=== PATIENT | female | born 1950 | race African-American/Black ===

== ENCOUNTER 2018-10-23 16:14 | Observation (INO) ==
--- NOTE | 2018-10-23 16:36 | Emergency Department Note ---
Disposition Clinical Impression: Elevated troponin Benign paroxysmal positional vertigo Qualifiers: Laterality: unspecified laterality Qualified Code(s): H81.10 - Benign paroxysmal vertigo, unspecified ear Disposition: Admitted As Inpatient Condition: Undetermined Instructions: Benign Paroxysmal Positional Vertigo (ED) Referrals: Abdi Lemon DO [Primary Care Provider] - Forms: ED Satisfaction Letter Time of Disposition: 18:39 Dizziness HPI - General Chief Complaint: ED Dizziness Stated Complaint: dizziness Time Seen by Provider: 10/23/18 16:20 Source: patient, family Mode of arrival: ambulatory Limitations: no limitations Nursing Notes Reviewed: Yes Vital Signs Reviewed: Yes - History of Present Illness HPI Narrative: 68-year-old female with history of hypertension, hyperlipidemia, family history of CVA arrives to the emergency department with complaint of dizziness that is worse when she sits up or rotates her head a certain way. The patient states that she also had a headache and was noted to be hypertensive with systolic blood pressure the 190s 1 day ago. The patient states her symptoms are ongoing over the past 24-36 hours. She denies any chest pain, difficulty breathing or any other complaints of dizziness. Patient is resting comfortably in the room without any other acute complaints at this time. - Related Data Home Medications Medication Instructions Recorded Confirmed Actos 05/20/17 Aspirin 05/20/17 Cymbalta 05/20/17 Lantus Solostar 05/20/17 Losartan Potassium 05/20/17 Metoprolol 05/20/17 NovoLOG 05/20/17 Plaquenuil 05/20/17 Triamterene 05/20/17 05/20/17 Zostavax 05/20/17 Allergies Allergy/AdvReac Type Severity Reaction Status Date / Time iodine Allergy Rash Verified 06/06/18 10:22 Penicillins Allergy Rash Verified 06/06/18 10:22 Kyuwbcq-Rpm-Meg Reductase Allergy Rash Verified 06/06/18 10:22 Inhibitor ivp dye Allergy Rash Uncoded 05/20/17 15:27 All systems ED: reviewed and negative except as stated. Constitutional: Denies: fever, chills, weakness Eyes: Denies: vision change ENT ED: Denies: dysphagia Cardiovascular: Denies: chest pain Respiratory: Denies: dyspnea Gastrointestinal: Denies: abdominal pain Genitourinary: Denies: urgency, dysuria Musculoskeletal: Denies: back pain, neck pain, arthralgia, myalgia Integumentary: Denies: rash Neurological: Reports: headache, vertigo. Denies: weakness, numbness, paresthesias, confusion Past Medical History - Past Medical History Attestation: Yes The following information was validated with the patient. Source: patient, old records reviewed Medical history: Reports: arthritis, diabetes, fibromyalgia, hypertension Surgical history: Reports: cholecystectomy, hysterectomy Psychiatric history: Reports: no psych history - Social History Smoking Status: Never smoker Smokeless Tobacco Status: No Alcohol use: Reports: none Drug use: Reports: none Physical Exam - General Limitations: no limitations General appearance: alert, in no apparent distress - Head Head exam: atraumatic, normocephalic, normal inspection - Eye Eye exam: Present: normal appearance, PERRL, EOMI - ENT ENT exam: normal exam, normal oropharynx, mucous membranes moist - Neck Neck exam: Present: normal inspection, full ROM, trachea midline - Chest Chest inspection: Present: normal inspection, symmetric chest wall rise - Respiratory Respiratory exam: Present: normal lung sounds bilaterally - Cardiovascular Cardiovascular exam: Present: normal rhythm, bradycardia (Baseline), normal heart sounds - Abdominal Exam Abdominal exam: Present: soft, Non-Tender. Absent: tenderness, distention, guarding, rebound, rigidity - Extremities Exam Extremities exam: Present: normal inspection, full ROM. Absent: tenderness, pedal edema - Neurological Exam Neurological exam: Present: alert, oriented X3, CN II-XII intact, other (HINTs exam consistent with peripheral vertigo) - Expanded Neurological Exam Patient oriented to: Present: person, place, time Speech: Present: fluid speech Cranial nerves: EOM function (II, III, IV, ): Normal, facial sensation (V): Normal, facial palsy (VII): Normal Cerebellar function: finger to nose: Normal Motor strength - LUE: 5/5 Motor strength - RUE: 5/5 Motor strength - LLE: 5/5 Motor strength - RLE: 5/5 Sensory exam upper extremity: light touch: Normal Sensory exam lower extremity: light touch: Normal Coma Scale Eye Opening: Spontaneous Coma Scale Motor Response: Obeys Commands Coma Scale Verbal Response: Oriented Coma Scale Total: 15 - Skin Skin exam: Present: warm, dry, intact, normal color Course Vital Signs Temperature 97.5 F L 10/23/18 16:15 Pulse Rate 51 02/17/19 16:15 Respiratory Rate 16 10/23/18 16:15 Blood Pressure 167/74 10/23/18 16:15 O2 Sat by Pulse Oximetry 97 10/23/18 16:15 Temperature 97.5 F L 10/23/18 16:15 Pulse Rate 48 10/23/18 17:09 Respiratory Rate 11 10/23/18 17:09 Blood Pressure 150/49 10/23/18 17:09 O2 Sat by Pulse Oximetry 100 10/23/18 17:09 Oxygen Delivery Oxygen Delivery Room Air Dizziness - MDM Narrative Medical decision making narrative: Patient's evaluation the emergency department demonstrates findings concerning for a peripheral vertigo. Workup here in the emergency department does demonstrate elevation in troponin which appears new. Patient's renal function is mildly decreased. Given the patient's vertiginous symptoms combined with an elevated troponin, we will admit the patient to the hospital for further workup and care. The patient made aware and agrees to plan. Head CT and labwork otherwise unremarkable. No other acute process identified. No further questions or concerns noted. Accepted by Dr. Buckley. - Lab Data Lab results reviewed: Yes I reviewed the patient's lab results. Result diagrams: 10/23/18 17:28 10/23/18 17:28 Lab Results 10/23/18 10/23/18 10/23/18 Range/Units 17:23 17:28 17:28 WBC 9.0 (4.3-11.1) K/mcL RBC 4.84 (3.82-4.97) M/mcL Hgb 14.1 (11.5-15.4) g/dL Hct 44.1 (35.3-44.9) % MCV 91.1 (83.0-100.0) fL MCH 29.1 (28.0-33.3) pg MCHC 32.0 (31.6-35.5) g/dL RDW 12.6 (11.5-14.5) % Plt Count 324 (140-400) K/mcL MPV 10.5 (9.4-12.4) fL Immature Gran % 0.1 (0-4) % Seg Neutrophils % 59.3 % Lymphocytes % 24.1 % Monocytes % 10.6 % Eosinophils % 5.1 % Basophils % 0.8 % Neutrophils # 5.4 (1.6-8.9) K/mcL Lymphocytes # 2.2 (0.6-4.6) K/mcL Monocytes # 1.0 (0.0-1.3) K/mcL Eosinophils # 0.5 (0.0-0.6) K/mcL Basophils # 0.1 (0.0-0.2) K/mcL Sodium 138 (136-145) mEq/L Potassium 4.2 (3.5-5.1) mEq/L Chloride 101 (98-107) mEq/L Carbon Dioxide 30 H (23-29) mEq/L BUN 27 H (8-23) mg/dL Creatinine 1.01 (0.60-1.20) mg/dL Est GFR ( Amer) > 60 (> 60) Est GFR (Non-Af Amer) 55 L (> 60) BUN/Creatinine Ratio 27 H (6-26) Glucose 87 (70-105) mg/dL Calculated Osmolality 290 (280-300) Calcium 9.7 (8.6-10.3) mg/dL Troponin I 0.04 H* (< 0.04) ng/mL Urine Color Yellow (Yellow) Urine Clarity Clear (Clear) Urine pH 7.5 (5.0-8.0) pH Units Ur Specific [place] 1.008 L (1.010-1.025) Urine Protein Trace (Neg-Trace) mg/dL Urine Glucose (UA) Normal (Normal) mg/dL Urine Ketones Negative (Negative) mg/dL Urine Blood Negative (Negative) Urine Nitrite Negative (Negative) Urine Bilirubin Negative (Negative) Urine Urobilinogen Normal (Normal) mg/dL Ur Leukocyte Esterase Trace H (Negative) Urine Microscopic RBC 0-3 (0-3) per hpf Urine Microscopic WBC 5-15 H (0-3) per hpf Ur Squamous Epith Cells Moderate H (None-Few) per lpf Urine Bacteria Many H (None-Few) per hpf Hyaline Casts None Seen (None-Few) per lpf Ur Culture Indicated? YES A (NO) - Radiology Data Radiology results reviewed: Yes I reviewed the patient's radiology results. Chest X-Ray 10/23/18 16:32 IMPRESSION: No evidence of edema or pneumonia. Mild left mid lung linear scarring or atelectasis. D/ / 10/23/2018 16:53:00 Lang Medrano MD / Rosa Maria Miles Interpreting Provider: Lang Medrano MD Head CT 10/23/18 16:32 IMPRESSION: No acute intracranial abnormality. D/ / Michelet Hall MD / Michelet Hall MD Interpreting Provider: Michelet Hall MD - EKG Data EKG attestation: Yes I reviewed and interpreted this EKG. EKG results narrative: Heart rate 48 beats for minute. Sinus bradycardia. No ST elevation or ST depression. No signs of third-degree AV block. EKG overall similar to EKG from 06/06/2018. No acute changes noted.
[2018-10-23 17:34] LABS: Bilirubin,Urine Negative (Negative); Blood,Urine Negative (Negative); Clarity,Urine Clear (Clear); Color,Urine Yellow (Yellow); Glucose,Urine (UA) Normal (Normal); Ketones,Urine Negative (Negative); Leukocyte Esterase,Urine Trace (Negative); Nitrite,Urine Negative (Negative); PH,Urine 7.5 pH Units (5.0-8.0); Protein,Urine Trace mg/dL (Neg-Trace); Specific Gravity,Urine 1.008 (1.010-1.025); Urobilinogen,Urine Normal (Normal)
[2018-10-23 17:37] LABS: Bacteria,Urine Many per hpf (None-Few); Hyaline Casts,Urine None Seen per lpf (None-Few); RBC,Urine 0-3 per hpf (0-3); Squamous Epithelial Cell,Urine Moderate per lpf (None-Few)
[2018-10-23 17:59] LABS: Basophils # 0.1 K/mcL (0.0-0.2); Basophils % 0.8 %; Eosinophils # 0.5 K/mcL (0.0-0.6); Eosinophils % 5.1 %; Hematocrit 44.1 % (35.3-44.9); Hemoglobin 14.1 g/dL (11.5-15.4); Immature Granulocytes % 0.1 % (0-4); Lymphocytes # 2.2 K/mcL (0.6-4.6); Lymphocytes % 24.1 %; Mean Corpuscular Hemoglobin 29.1 pg (28.0-33.3); Mean Corpuscular Volume 91.1 fL (83.0-100.0); Mean Platelet Volume 10.5 fL (9.4-12.4); Monocytes % 10.6 %; Neutrophils # 5.4 K/mcL (1.6-8.9); Platelet Count 324 K/mcL (140-400); Red Blood Count 4.84 M/mcL (3.82-4.97); Red Cell Distribution Width 12.6 % (11.5-14.5); Segmented Neutrophils % 59.3 %
[2018-10-23 18:21] LABS: BUN/Creatinine Ratio 27 (6-26); Blood Urea Nitrogen 27 mg/dL (8-23); Calcium 9.7 mg/dL (8.6-10.3); Carbon Dioxide 30 mEq/L (23-29); Chloride 101 mEq/L (98-107); Glucose 87 mg/dL (70-105); Osmolality,Calculated 290 (280-300); Potassium 4.2 mEq/L (3.5-5.1); Sodium 138 mEq/L (136-145); eGFR For Non-African Americans 55 (> 60)
[2018-10-23 18:23] LABS: Troponin I 0.04 ng/mL (< 0.04)
[2018-10-23] MEDS ORDERED: Aspirin 325 MG TABLET PO ONE (18:35)
--- NOTE | 2018-10-23 18:50 | Emergency Department Note ---
Disposition Clinical Impression: Elevated troponin Benign paroxysmal positional vertigo Qualifiers: Laterality: unspecified laterality Qualified Code(s): H81.10 - Benign paroxysmal vertigo, unspecified ear Disposition: Admitted As Inpatient Condition: Undetermined Instructions: Benign Paroxysmal Positional Vertigo (ED) Referrals: Abdi Lemon DO [Primary Care Provider] - Forms: ED Satisfaction Letter General Adult HPI - General Chief complaint: ED Dizziness Stated complaint: dizziness Time Seen by Provider: 10/23/18 16:20 Source: patient, family Mode of arrival: ambulatory Limitations: no limitations - History of Present Illness Pain Scale: 2 - Related Data Home Medications Medication Instructions Recorded Confirmed Actos 05/20/17 Aspirin 05/20/17 Cymbalta 05/20/17 Lantus Solostar 05/20/17 Losartan Potassium 05/20/17 Metoprolol 05/20/17 NovoLOG 05/20/17 Plaquenuil 05/20/17 Triamterene 05/20/17 05/20/17 Zostavax 05/20/17 Allergies Allergy/AdvReac Type Severity Reaction Status Date / Time iodine Allergy Rash Verified 06/06/18 10:22 Penicillins Allergy Rash Verified 06/06/18 10:22 Juzxwbc-Dsg-Chz Reductase Allergy Rash Verified 06/06/18 10:22 Inhibitor ivp dye Allergy Rash Uncoded 05/20/17 15:27 Constitutional: Denies: fever, chills, weakness Eyes: Denies: vision change ENT ED: Denies: dysphagia Cardiovascular: Denies: chest pain Respiratory: Denies: dyspnea Gastrointestinal: Denies: abdominal pain Genitourinary: Denies: urgency, dysuria Musculoskeletal: Denies: back pain, neck pain, arthralgia, myalgia Integumentary: Denies: rash Neurological: Reports: headache, vertigo. Denies: weakness, numbness, paresthesias, confusion Past Medical History - Past Medical History Medical history: Reports: arthritis, diabetes, fibromyalgia, hypertension Surgical history: Reports: cholecystectomy, hysterectomy Psychiatric history: Reports: no psych history - Social History Smoking Status: Never smoker Smokeless Tobacco Status: No Alcohol use: Reports: none Drug use: Reports: none Physical Exam - General Limitations: no limitations General appearance: alert, in no apparent distress Course Vital Signs Temperature 97.5 F L 10/23/18 16:15 Pulse Rate 51 10/23/18 16:15 Respiratory Rate 16 10/23/18 16:15 Blood Pressure 167/74 10/23/18 16:15 O2 Sat by Pulse Oximetry 97 10/23/18 16:15 Temperature 97.5 F L 10/23/18 16:15 Pulse Rate 48 10/23/18 17:09 Respiratory Rate 11 10/23/18 17:09 Blood Pressure 150/49 10/23/18 17:09 O2 Sat by Pulse Oximetry 100 10/23/18 17:09 Oxygen Delivery Oxygen Delivery Room Air Medical Decision Making - Lab Data Result diagrams: 10/23/18 17:28 10/23/18 17:28 Lab Results 10/23/18 10/23/18 10/23/18 Range/Units 17:23 17:28 17:28 WBC 9.0 (4.3-11.1) K/mcL RBC 4.84 (3.82-4.97) M/mcL Hgb 14.1 (11.5-15.4) g/dL Hct 44.1 (35.3-44.9) % MCV 91.1 (83.0-100.0) fL MCH 29.1 (28.0-33.3) pg MCHC 32.0 (31.6-35.5) g/dL RDW 12.6 (11.5-14.5) % Plt Count 324 (140-400) K/mcL MPV 10.5 (9.4-12.4) fL Immature Gran % 0.1 (0-4) % Seg Neutrophils % 59.3 % Lymphocytes % 24.1 % Monocytes % 10.6 % Eosinophils % 5.1 % Basophils % 0.8 % Neutrophils # 5.4 (1.6-8.9) K/mcL Lymphocytes # 2.2 (0.6-4.6) K/mcL Monocytes # 1.0 (0.0-1.3) K/mcL Eosinophils # 0.5 (0.0-0.6) K/mcL Basophils # 0.1 (0.0-0.2) K/mcL Sodium 138 (136-145) mEq/L Potassium 4.2 (3.5-5.1) mEq/L Chloride 101 (98-107) mEq/L Carbon Dioxide 30 H (23-29) mEq/L BUN 27 H (8-23) mg/dL Creatinine 1.01 (0.60-1.20) mg/dL Est GFR ( Amer) > 60 (> 60) Est GFR (Non-Af Amer) 55 L (> 60) BUN/Creatinine Ratio 27 H (6-26) Glucose 87 (70-105) mg/dL Calculated Osmolality 290 (280-300) Calcium 9.7 (8.6-10.3) mg/dL Troponin I 0.04 H* (< 0.04) ng/mL Urine Color Yellow (Yellow) Urine Clarity Clear (Clear) Urine pH 7.5 (5.0-8.0) pH Units Ur Specific [place] 1.008 L (1.010-1.025) Urine Protein Trace (Neg-Trace) mg/dL Urine Glucose (UA) Normal (Normal) mg/dL Urine Ketones Negative (Negative) mg/dL Urine Blood Negative (Negative) Urine Nitrite Negative (Negative) Urine Bilirubin Negative (Negative) Urine Urobilinogen Normal (Normal) mg/dL Ur Leukocyte Esterase Trace H (Negative) Urine Microscopic RBC 0-3 (0-3) per hpf Urine Microscopic WBC 5-15 H (0-3) per hpf Ur Squamous Epith Cells Moderate H (None-Few) per lpf Urine Bacteria Many H (None-Few) per hpf Hyaline Casts None Seen (None-Few) per lpf Ur Culture Indicated? YES A (NO) Attestation Statement - Attestation Attestation: I examined this patient and my medical decision-making was reviewed with the Resident Physician. I agree with the documented findings, disposition and treatment plan as described except to the extent set forth below. 68 year old female presnts to the ED with complaints of vertigo and has a famiy history of strokes and elevated troponin. Her symtoms have subsided and she has been treated with ASA therapy. we will admit to medicine
[2018-10-23] MEDS ORDERED: *HR* Dextrose 50 % in Water (Syg) 50 ML SYRINGE IVP PRN (21:27)
[2018-10-23] MEDS ORDERED: Dextrose 4 GM Chewable Tablets PO PRN ×2 (21:27)
[2018-10-23] MEDS ORDERED: D5% in Water 1,000 ML IVC PRN (21:27)
[2018-10-23] MEDS ORDERED: Dextrose Gel 15 GM/37.5 ML TUBE PO PRN ×2 (21:27)
--- NOTE | 2018-10-23 21:38 | Internal Med History&Physical ---
<Nellie Gilliam N - Last Filed: 10/23/18 23:16> Date of Encounter: 10/23/18 Time of Encounter: 21:36 Internal Medicine - H&P: HPI Chief complaint: dizziness History of present illness: Ms. Story is a 68 year old female with past medical history of hypertension, insulin-dependent diabetes, hyperlipidemia and family history of coronary artery disease and strokes who presents to the emergency department with a chief complaint of dizziness. She states that the dizziness is worse when she stands up. She first noticed the dizziness early in the morning when she woke up. Describes it as if she is standing still and everything is spinning around her. Denies any loss of consciousness, falls, or hitting her head. But admits to a headache, worse in the occipital region. Denies any vision changes or hearing changes. Denies any changes in her speech. Denies any confusion. Denies any sensory or motor changes. She states that her blood pressure was also noted to be in the 190s systolic one day prior. In the emergency department she was found to be hypertensive with a BP of 167/74. Her lab workup revealed a slight elevation in troponin as well. EKG did reveal bradycardia with a heart rate of 48, however no AV blocks were noted. No ST-T wave changes. Patient denies any chest pain or shortness of breath. A head CT was performed and was unremarkable. Past Med Surg Social Fam HX - Past Medical History Medical history: arthritis, diabetes, fibromyalgia, hypertension Psychiatric history: no psych history - Past Surgical History Surgical History: cholecystectomy, hysterectomy Additional surgical history: carpal tunnel - Social History Smoking Status: Never smoker Smokeless Tobacco Status: No Alcohol use: none Drug use: none Internal Medicine - H&P: Meds Alendronate Sodium [Fosamax] 70 mg PO MO 10/23/18 [History] Aspirin [Lo-Dose Aspirin EC] 81 mg PO DAILY 10/23/18 [History] Duloxetine HCl [Cymbalta] 60 mg PO DAILY 10/23/18 [History] Insulin ASPART [NovoLOG] 10 unit SQ DAILY@1700 10/23/18 [History] Insulin Glargine,Hum.rec.anlog [Basaglar Kwikpen U-100] 60 unit SQ HS 10/23/18 [History] Losartan [Cozaar] 50 mg PO BID 10/23/18 [History] Metoprolol [Lopressor] 25 mg PO BID 10/23/18 [History] Pioglitazone [Actos] 45 mg PO 0800 10/23/18 [History] Triamterene/Hydrochlorothiazid [Triamterene-Hctz 75-50 mg Tab] 1 each PO DAILY 10/23/18 [History] Allergy/AdvReac Type Severity Reaction Status Date / Time iodine Allergy Rash Verified 06/06/18 10:22 Penicillins Allergy Rash Verified 06/06/18 10:22 [place]-Nho-Zuz Reductase Allergy Rash Verified 06/06/18 10:22 Inhibitor ivp dye Allergy Rash Uncoded 05/20/17 15:27 All Systems PM: A 10-system review of systems was performed and is negative for pertinent findings except as documented above in the HPI. - Constitutional Constitutional: no fatigue, no falls - EENT Eyes: no blurry vision, no change in vision Ears: no tinnitus - Cardiovascular Cardiovascular ROS IM: no chest pain - Respiratory Respiratory: no dyspnea - Gastrointestinal Gastrointestinal: no abdominal pain - Musculoskeletal Musculoskeletal ROS IM: no muscle weakness - Integumentary Integumentary IM: unusual bruising, no rash - Neurological Neurological ROS: headache(s) - Psychiatric Psychiatric: no confusion - Endocrine Endocrine IM: no cold intolerance - Hematologic/Lymphatic Hematologic/Lymphatic: easy bruising - Constitutional Vitals: Temp Pulse Resp BP Pulse Ox 97.9 F 51 16 155/81 98 10/23/18 20:34 10/23/18 20:34 10/23/18 20:34 10/23/18 20:34 10/23/18 20:34 Exam: Constitutional: resting comfortably in bed, no distress HEENT: head is atraumatic and normocephalic, EOMI, Pupils react to light bilaterally. Evidence of prior cataract surgery right eye, left eye has cataracts. no oropharyngeal lesions. External ears and nares patent. Neck: No JVD, Trachea midline Chest: symmetrical chest wall rise, no tenderness to palpation Respiratory: clear to auscultation bilaterally, no rales ronchi or wheezing Abdomen: soft nontender, no guarding or rigidity Extremities: no cyanosis, clubbing or edema Skin: clean dry and intact Psych: pleasant, cooperative, appropriate mood and affect Neurological: -General: alert and oriented X 3, no dysarthria, hemiparesis, or obvious focal n eurological deficit -Cranial nerves: EOMI, PERRL, no facial asymmetry, no facial sensory changes, to ngue protrudes midline, normal SCM, and trapezius strength -Upper extremities: strength is 5/5 throughout bilaterally, bicep reflexes are 1+ bilaterally, sensation intact, finger to nose normal -Lower extremities: strength is 5/5 throughout bilaterally, patellar reflexes are 1+ bilaterally, sensation intact, babinski negative Internal Med - H&P Results - Labs CBC & Chem 7: 10/23/18 17:28 10/23/18 17:28 Labs: Short CBC 10/23/18 Range/Units 17:28 WBC 9.0 (4.3-11.1) K/mcL Hgb 14.1 (11.5-15.4) g/dL Hct 44.1 (35.3-44.9) % Plt Count 324 (140-400) K/mcL Neutrophils # 5.4 (1.6-8.9) K/mcL BMP 10/23/18 17:28 Sodium 138 Potassium 4.2 Chloride 101 Carbon Dioxide 30 H BUN 27 H Creatinine 1.01 Glucose 87 Calcium 9.7 Cardiac Enzymes 10/23/18 Range/Units 17:28 Troponin I 0.04 H* (< 0.04) ng/mL Urine 10/23/18 Range/Units 17:23 Urine Color Yellow (Yellow) Urine Clarity Clear (Clear) Urine pH 7.5 (5.0-8.0) pH Units Ur Specific [place] 1.008 L (1.010-1.025) Urine Protein Trace (Neg-Trace) mg/dL Urine Glucose (UA) Normal (Normal) mg/dL - Impressions ITS Impressions Chest X-Ray 10/23/18 16:32 IMPRESSION: No evidence of edema or pneumonia. Mild left mid lung linear scarring or atelectasis. D/ /23/2018 16:53:00 Lang Medrano MD / Rosa Maria Miles Interpreting Provider: Lang Medrano MD Head CT 10/23/18 16:32 IMPRESSION: No acute intracranial abnormality. D/ / Michelet Hall MD / Michelet Hall MD Interpreting Provider: Michelet Hall MD - Assessment and plan (1) Dizziness Current Visit: Yes Status: Acute Assessment and plan: Differential includes CVA vs. BPV vs. hypertensive emergency vs. orthostatic hypotension -1 day history of acute onset dizziness after waking up -Associated with positional change of standing up -Described as everything spins around her -Received meclizine in the ED, but still reports feeling dizzy -No history of prior CVA or TIA -Will obtain MRI head in the morning -Echo ordered -Carotid dopplers pending -Obtaining A1c, Lipids, Vitamin B12, and TSH -Neurochecks Q4H -Cardiac monitoring -Orthostatic vital signs -PT/OT consult (2) Elevated troponin Current Visit: Yes Status: Acute Assessment and plan: -EKG in ED showed bradycardia but no ST-T wave changes -ASA 81mg daily -Cardiac monitoring -Repeat troponin -Echo in the AM (3) Hypertension Current Visit: Yes Status: Acute Assessment and plan: -Reportedly systolic blood pressure in the 190s yesterday. -Currently blood pressure is 176/75 -There is suspicions for CVA at this time, thus will allow for less stringent blood pressure control. -Will hold metoprolol due to bradycardia -Will continue home meds, except metoprolol, with a goal to maintain systolic BPs below 180 Qualifiers: Qualified Code(s): I10 - Essential (primary) hypertension (4) Insulin dependent diabetes mellitus Current Visit: Yes Status: Acute Assessment and plan: -low dose sliding scale insulin -Accuchecks Q4H -diabetic diet (5) Hyperlipidemia Current Visit: Yes Status: Acute Assessment and plan: Patient has allergy to Statins Lipid panel in the AM Qualifiers: Qualified Code(s): E78.5 - Hyperlipidemia, unspecified (6) DVT prophylaxis Current Visit: Yes Status: Acute Assessment and plan: Heparin 5000u SubQ Q12H - Time Spent With Patient Total time spent is greater than 50% in coordination of care (as documented) at patient's floor/unit and/or counseling patient: <Folra Bejosejose - Last Filed: 10/23/18 23:39> Date of Encounter: 10/23/18 Internal Medicine - H&P: HPI History of present illness: Ms. Story is a 68 year old female All Systems PM: A 10-system review of systems was performed and is negative for pertinent findings except as documented above in the HPI. - Constitutional Vitals: Temp Pulse Resp BP Pulse Ox 97.9 F 51 16 155/81 98 10/23/18 20:34 10/23/18 20:34 10/23/18 20:34 10/23/18 20:34 10/23/18 20:34 Internal Med - H&P Results - Labs CBC & Chem 7: 10/23/18 17:28 10/23/18 17:28 Labs: Short CBC 10/23/18 Range/Units 17:28 WBC 9.0 (4.3-11.1) K/mcL Hgb 14.1 (11.5-15.4) g/dL Hct 44.1 (35.3-44.9) % Plt Count 324 (140-400) K/mcL Neutrophils # 5.4 (1.6-8.9) K/mcL BMP 10/23/18 17:28 Sodium 138 Potassium 4.2 Chloride 101 Carbon Dioxide 30 H BUN 27 H Creatinine 1.01 Glucose 87 Calcium 9.7 Cardiac Enzymes 10/23/18 Range/Units 17:28 Troponin I 0.04 H* (< 0.04) ng/mL Urine 10/23/18 Range/Units 17:23 Urine Color Yellow (Yellow) Urine Clarity Clear (Clear) Urine pH 7.5 (5.0-8.0) pH Units Ur Specific [place] 1.008 L (1.010-1.025) Urine Protein Trace (Neg-Trace) mg/dL Urine Glucose (UA) Normal (Normal) mg/dL - Impressions ITS Impressions Chest X-Ray 10/23/18 16:32 IMPRESSION: No evidence of edema or pneumonia. Mild left mid lung linear scarring or atelectasis. D/ / 10/23/2018 16:53:00 Lang Medrano MD / Rosa Maria Miles Interpreting Provider: Lang Medrano MD Head CT 10/23/18 16:32 IMPRESSION: No acute intracranial abnormality. D/ / Michelet Hall MD / Michelet Hall MD Interpreting Provider: Michelet Hall MD - Time Spent With Patient Total time spent is greater than 50% in coordination of care (as documented) at patient's floor/unit and/or counseling patient: - Attending Attestation I performed a history and physical exam of the patient and discussed management with the resident. I reviewed the resident's note and agree with the documented findings and plan of care. Jenelle Story is a 68 year old woman with poorly controlled hypertension who presents with the complaint of dizziness which seems related to exertion and standing up, stating that it comes up when she moves too quickly. She also relates the episodes related to elevated BP values detected at home, reporting rebellious hypertension requiring 3 medications. Her physical exam is benign. Lab values grossly within normal limits except a troponin of 0.04. Her EKG showed a sinus bradycardia with signs of an old infarct. She denies any chest pain or shortness. Will admit for observation. Obtain orthostatic vitals due to report of dizziness with standing up. Obtain an echo to rule out valvular heart disease. Monitor on telemetry and trend cardiac enzymes. Resume home oral antihypertensives but hold beta blockers for now due to bradycardia as this could be a potential factor as well. Fall precautions. PT consult. COURT JACOBS.
[2018-10-23] MEDS: *HR* Heparin 5,000 UNIT/ML VIAL SQ SCH (23:19)
[2018-10-24] MEDS: Insulin LISPRO 300 UNITS/3 ML VIAL SQ SCH ×6 (01:28→20:53)
[2018-10-24 01:34] LABS: Mean Corpuscular HGB Conc 31.8 g/dL (31.6-35.5); Mean Corpuscular Hemoglobin 28.7 pg (28.0-33.3); Mean Corpuscular Volume 90.3 fL (83.0-100.0); Mean Platelet Volume 10.4 fL (9.4-12.4); Platelet Count 285 K/mcL (140-400); Red Blood Count 4.21 M/mcL (3.82-4.97); Red Cell Distribution Width 12.6 % (11.5-14.5)
[2018-10-24 01:35] LABS: Hemoglobin 12.1 g/dL (11.5-15.4)
[2018-10-24 01:44] LABS: INR 1.1
[2018-10-24 01:54] LABS: Albumin 3.6 g/dL (3.5-5.7); Albumin/Globulin Ratio 1.2 (1.1-2.2); Bilirubin,Total 0.5 mg/dL (0.3-1.0); Calcium 8.7 mg/dL (8.6-10.3); Chol/HDL Ratio 4.6 (0-4.9); Globulin 2.9 g/dL (2.4-3.5); Potassium 3.9 mEq/L (3.5-5.1); Total Protein 6.5 g/dL (6.4-8.9)
[2018-10-24] MEDS: *HR* Heparin 5,000 UNIT/ML VIAL SQ SCH ×2 (06:17→18:30)
[2018-10-24] MEDS ORDERED: *HR* Pioglitazone 45 MG TABLET PO SCH (08:00)
[2018-10-24] MEDS: Aspirin Enteric Coated 81 MG Tablet PO SCH (08:18)
[2018-10-24] MEDS ORDERED: Aspirin 81 MG TAB.CHEW PO SCH (09:00)
[2018-10-24 10:03] LABS: Estimated Average Glucose 263 mg/dl; Hemoglobin A1C 10.8 %
--- NOTE | 2018-10-24 15:32 | Internal Med Progress Note ---
<Luis Taylor - Last Filed: 10/24/18 16:53> Hospitalist Progress Note - Encounter Date of Encounter: 10/24/18 - Exam Vitals: Temp Pulse Resp BP Pulse Ox 98.0 F 62 16 156/75 97 10/24/18 15:57 10/24/18 15:57 10/24/18 15:57 10/24/18 15:57 10/24/18 15:57 - Assessment and Plan (1) Elevated troponin Current Visit: Yes Status: Resolved (2) Dizziness Current Visit: Yes Status: Acute (3) Insulin dependent diabetes mellitus Current Visit: Yes Status: Chronic (4) Hypertension Current Visit: Yes Status: Chronic (5) Hyperlipidemia Current Visit: Yes Status: Chronic - Time Spent with Patient Total time spent is greater than 50% in coordination of care (as documented) at patient's floor/unit and/or counseling patient: Internal Medicine: Result - Labs CBC & Chem 7: 10/24/18 01:21 10/24/18 01:21 Labs: Short CBC 10/23/18 10/24/18 Range/Units 17:28 01:21 WBC 9.0 9.1 (4.3-11.1) K/mcL Hgb 14.1 12.1 D (11.5-15.4) g/dL Hct 44.1 38.0 (35.3-44.9) % Plt Count 324 285 (140-400) K/mcL Neutrophils # 5.4 (1.6-8.9) K/mcL BMP 10/23/18 10/24/18 17:28 01:21 Sodium 138 135 L Potassium 4.2 3.9 Chloride 101 102 Carbon Dioxide 30 H 28 BUN 27 H 30 H Creatinine 1.01 1.15 Glucose 87 109 H Calcium 9.7 8.7 Cardiac Enzymes 10/23/18 10/24/18 Range/Units 17:28 01:21 Troponin I 0.04 H* 0.03 (< 0.04) ng/mL Liver Function 10/24/18 Range/Units 01:21 Total Bilirubin 0.5 (0.3-1.0) mg/dL AST 17 (13-39) Units/L ALT 11 (7-52) Units/L Alkaline Phosphatase 97 (34-104) Units/L Albumin 3.6 (3.5-5.7) g/dL Urine 10/23/18 Range/Units 17:23 Urine Color Yellow (Yellow) Urine Clarity Clear (Clear) Urine pH 7.5 (5.0-8.0) pH Units Ur Specific [place] 1.008 L (1.010-1.025) Urine Protein Trace (Neg-Trace) mg/dL Urine Glucose (UA) Normal (Normal) mg/dL - ABG Interpretation ABG results: PT/INR, D-dimer PT 12.0 Seconds (9.4-12.1) 10/24/18 01:21 - Impressions Impressions Chest X-Ray 10/23/18 16:32 IMPRESSION: No evidence of edema or pneumonia. Mild left mid lung linear scarring or atelectasis. D/ / 10/23/2018 16:53:00 Lang Medrano MD / Rosa Maria Miles Interpreting Provider: Lang Medrano MD Head CT 10/23/18 16:32 IMPRESSION: No acute intracranial abnormality. D/ / Michelet Hall MD / Michelet Hall MD Interpreting Provider: Michelet Hall MD Brain MRI 10/24/18 21:17 IMPRESSION: 1. No acute intracranial abnormality. No acute infarct. 2. Minimal global parenchymal volume loss with minimal chronic microvascular ischemic change. D/ / Tariq Greer MD / Tariq Greer MD Interpreting Provider: Tariq Greer MD Consult Discharge Plan - Plan Referrals: Abdi Lemon DO [Primary Care Provider] - - Attending Attestation I examined this patient and my medical decision-making was reviewed with the Resident Physician on 10/24/18. I agree with the documented findings, disposit ion and treatment plan as described except to the extent set forth below. Ms Story is currently in observation for dizziness. She remains moderate to high risk. Ms Story is resting in bed. She did not have MRI or any other test yet. No fever or chills. No CP or SOB. Exam Alert Comfortable Mucus membranes dry Heart not tachy or karen now No wheeze abd soft Moves all extremities No nystagmus. I/P 1. Vertigo - MRI and echo pending 2. HTN 3. DM Further diagnoses and plan as above. <Jose Esquivel - Last Filed: 10/24/18 18:35> Hospitalist Progress Note - Encounter Date of Encounter: 10/24/18 Time of Encounter: 09:45 - Subjective Interval History: Pt seen and examined at bedside. No acute events overnight. Pt states she did have a slight headache this morning, but states it resolved after she closed her eyes and took a short nap. Denies any fever, chills, chest pain, shortness of breath, abdominal pain, nausea, vomiting, dizziness, numbness, or tingling. No urinary symptoms. - Exam Vitals: Temp Pulse Resp BP Pulse Ox 97.9 F 61 14 127/72 97 10/24/18 11:13 10/24/18 11:38 10/24/18 07:15 10/24/18 11:38 10/24/18 11:13 Exam: Constitutional: obese female in no acute distress Head: normocephalic and atraumatic Eyes: PERRL, EOMI, sclera anicteric, conjunctiva pink Neck: supple, trachea midline, no carotid bruits appreciated Lungs: CTA bilaterally. non-labored breathing. no wheezes, rales, or rhonchi Heart: RRR +S1 +s2 No murmurs, clicks, or rubs appreciated GI: abdomen soft, non-tender, non-distended. normoactive bowel sounds Extremities: warm, peripheral pulses palpable and symmetrical. no edema, cyanosis, or calf tenderness. Neuro: A&Ox3. no focal deficits. no speech difficulty or abnormality. Skin: warm, dry, intact. - Assessment and Plan (1) Dizziness Current Visit: Yes Status: Acute Assessment and Plan: No history of prior CVA or TIA CT head was negative MRI head was negative for acute abnormality, did show chronic microvascular ischemic changes Echocardiogram ordered Carotid dopplers pending A1c elevated at 10.8 - follow up with PCP on discharge TSH and B12 normal Orthostatic change seen in BP from sitting to standing Await echo to evaluate for valvular abnormalities Await carotid doppler (2) Elevated troponin Current Visit: Yes Status: Resolved Assessment and Plan: Mild elevation at 0.04 on admission EKG in ED showed bradycardia but no ST-T wave changes Repeat troponin this morning 0.03 Continue ASA 81mg daily Await echo results as above (3) Insulin dependent diabetes mellitus Current Visit: Yes Status: Chronic Assessment and Plan: Hgb A1c elevated at 10.3 Continue SSI and ACHS accuchecks (4) Hypertension Current Visit: Yes Status: Chronic Assessment and Plan: Elevated on admission with SBP in the 170s Home metoprolol was d/c'ed due to bradycardia - continue to hold Controlled at 134/66 this AM Continue home Cozaar and Triamterene/HCTZ Continue to monitor (5) Hyperlipidemia Current Visit: Yes Status: Chronic Assessment and Plan: Pt is allergic to statins Lipid panel this morning revealed total cholesterol controlled at 170 Triglycerides elevated at 203 DVT Prophylaxis: SQ Heparin - Time Spent with Patient Total time spent is greater than 50% in coordination of care (as documented) at patient's floor/unit and/or counseling patient: Internal Medicine: Result - Labs CBC & Chem 7: 10/24/18 01:21 10/24/18 01:21 Labs: Short CBC 10/23/18 10/24/18 Range/Units 17:28 01:21 WBC 9.0 9.1 (4.3-11.1) K/mcL Hgb 14.1 12.1 D (11.5-15.4) g/dL Hct 44.1 38.0 (35.3-44.9) % Plt Count 324 285 (140-400) K/mcL Neutrophils # 5.4 (1.6-8.9) K/mcL BMP 10/23/18 10/24/18 17:28 01:21 Sodium 138 135 L Potassium 4.2 3.9 Chloride 101 102 Carbon Dioxide 30 H 28 BUN 27 H 30 H Creatinine 1.01 1.15 Glucose 87 109 H Calcium 9.7 8.7 Cardiac Enzymes 10/23/1818 Range/Units 17:28 01:21 Troponin I 0.04 H* 0.03 (< 0.04) ng/mL Liver Function 10/24/18 Range/Units 01:21 Total Bilirubin 0.5 (0.3-1.0) mg/dL AST 17 (13-39) Units/L ALT 11 (7-52) Units/L Alkaline Phosphatase 97 (34-104) Units/L Albumin 3.6 (3.5-5.7) g/dL Urine 10/23/18 Range/Units 17:23 Urine Color Yellow (Yellow) Urine Clarity Clear (Clear) Urine pH 7.5 (5.0-8.0) pH Units Ur Specific [place] 1.008 L (1.010-1.025) Urine Protein Trace (Neg-Trace) mg/dL Urine Glucose (UA) Normal (Normal) mg/dL - ABG Interpretation ABG results: PT/INR, D-dimer PT 12.0 Seconds (9.4-12.1) 10/24/18 01:21 - Impressions Impressions Chest X-Ray 10/23/18 16:32 IMPRESSION: No evidence of edema or pneumonia. Mild left mid lung linear scarring or atelectasis. D/ / 10/23/2018 16:53:00 Lang Medrano MD / Rosa Maria Miles Interpreting Provider: Lang Medrano MD Head CT 10/23/18 16:32 IMPRESSION: No acute intracranial abnormality. D/ / Michelet Hall MD / Michelet Hall MD Interpreting Provider: Michelet Hall MD Brain MRI 10/24/18 21:17 IMPRESSION: 1. No acute intracranial abnormality. No acute infarct. 2. Minimal global parenchymal volume loss with minimal chronic microvascular ischemic change. D/ / Tariq Greer MD / Tariq Greer MD Interpreting Provider: Tariq Greer MD <Luis Taylor A - Last Filed: 10/24/18 16:53> (4) Hypertension Qualifiers: Hypertension type: essential hypertension Qualified Code(s): I10 - Essential (primary) hypertension (5) Hyperlipidemia Qualifiers: Hyperlipidemia type: mixed hyperlipidemia Qualified Code(s): E78.2 - Mixed hyperlipidemia <Jose Esquivel A - Last Filed: 10/24/18 18:35> (4) Hypertension Qualifiers: Hypertension type: essential hypertension Qualified Code(s): I10 - Essential (primary) hypertension (5) Hyperlipidemia Qualifiers: Hyperlipidemia type: mixed hyperlipidemia Qualified Code(s): E78.2 - Mixed hyperlipidemia
[2018-10-24] MEDS ORDERED: Perflutren Lipid Microsphere 1.3 ML in 0.9 % Sodium Chloride 8.7 ML IVP ONE (17:36)
[2018-10-24] MEDS ORDERED: 0.9 % Sodium Chloride 1,000 ML IVC SCH (18:45)
[2018-10-25] MEDS: *HR* Heparin 5,000 UNIT/ML VIAL SQ SCH ×2 (05:48→16:49)
--- NOTE | 2018-10-25 06:14 | Electrocardiograph Report ---
[facility] Test Date: 2018-10-23 Pat Name: Jenelle Story Department: EXAM6 Room: 2A44 Gender: F Claims Representative: : 1950 Requested By: Abdi Cervantes Order Number: [id number] Reading MD: Tucker Callahan Measurements Intervals [place] Rate: 48 P: -9 HI: 160 QRS: 16 QRSD: 94 T: 62 QT: 472 QTc: 422 Interpretive Statements Sinus bradycardia Old Anterior infarct Electronically Signed On 10-25-2018 6:13:25 EST by Tucker Callahan
[2018-10-25 06:21] LABS: Basophils # 0.1 K/mcL (0.0-0.2); Basophils % 0.8 %; Eosinophils # 0.4 K/mcL (0.0-0.6); Eosinophils % 6.2 %; Hematocrit 34.7 % (35.3-44.9); Hemoglobin 11.3 g/dL (11.5-15.4); Immature Granulocytes % 0.1 % (0-4); Lymphocytes # 2.2 K/mcL (0.6-4.6); Mean Corpuscular HGB Conc 32.6 g/dL (31.6-35.5); Mean Platelet Volume 10.6 fL (9.4-12.4); Monocytes # 0.8 K/mcL (0.0-1.3); Monocytes % 11.3 %; Neutrophils # 3.6 K/mcL (1.6-8.9); Platelet Count 259 K/mcL (140-400); Red Cell Distribution Width 12.7 % (11.5-14.5); Segmented Neutrophils % 50.6 %
[2018-10-25 06:38] LABS: Calcium 8.6 mg/dL (8.6-10.3); Potassium 4.3 mEq/L (3.5-5.1)
[2018-10-25] MEDS: Aspirin Enteric Coated 81 MG Tablet PO SCH (08:03)
[2018-10-25] MEDS: Insulin LISPRO 300 UNITS/3 ML VIAL SQ SCH ×5 (08:03→21:45)
[2018-10-25] MEDS ORDERED: 0.9 % Sodium Chloride 1,000 ML IVC SCH (12:45)
[2018-10-25] MEDS: levoFLOXacin 250 MG TABLET PO SCH (12:50)
--- NOTE | 2018-10-25 17:02 | Internal Med Progress Note ---
<Jose Esquivel - Last Filed: 10/25/18 17:31> Hospitalist Progress Note - Encounter Date of Encounter: 10/25/18 Time of Encounter: 17:01 - Subjective Interval History: Pt seen and examined at bedside. No acute events overnight. She does admit to a couple further episodes of dizziness throughout the day. Denies any fever, chills, chest pain, shortness of breath, abdominal pain, nausea, vomiting, dizziness, numbness, or tingling. No urinary symptoms. - Exam Vitals: Temp Pulse Resp BP Pulse Ox 98.4 F 76 18 119/52 95 10/25/18 15:28 10/25/18 15:28 10/25/18 15:28 10/25/18 15:28 10/25/18 15:28 Exam: Constitutional: obese female in no acute distress Head: normocephalic and atraumatic Eyes: PERRL, EOMI, sclera anicteric, conjunctiva pink Neck: supple, trachea midline, no carotid bruits appreciated Lungs: CTA bilaterally. non-labored breathing. no wheezes, rales, or rhonchi Heart: RRR +S1 +s2 No murmurs, clicks, or rubs appreciated GI: abdomen soft, non-tender, non-distended. normoactive bowel sounds Extremities: warm, peripheral pulses palpable and symmetrical. no edema, cyanosis, or calf tenderness. Neuro: A&Ox3. no focal deficits. no speech difficulty or abnormality. Skin: warm, dry, intact. - Assessment and Plan (1) Carotid artery stenosis, symptomatic Current Visit: Yes Status: Acute Assessment and Plan: Presented with 2 days duration of dizziness No history of prior CVA or TIA CT head was negative MRI head was negative for acute abnormality, did show chronic microvascular ischemic changes Echocardiogram - LVEF 60-65%. Mild left ventricular diastolic dysfunction. RV not well visualized. Mild tricuspid regurgitation. Carotid dopplers - Right proximal ICA has a severe, 60-79% stenosis. Left mid ICA has a moderate, 40-59% stenosis. A1c elevated at 10.8 - follow up with PCP on discharge TSH and B12 normal Orthostatic change seen in BP from sitting to standing Will hydrate with IV fluids overnight with TOI with plans for CTA of carotids in AM (2) Elevated troponin Current Visit: Yes Status: Resolved Assessment and Plan: Continues to deny chest pain Mild elevation at 0.04 on admission EKG in ED showed bradycardia but no ST-T wave changes Repeat troponin this morning 0.03 Continue ASA 81mg daily Echo results as above No further treatment at this time. (3) Insulin dependent diabetes mellitus Current Visit: Yes Status: Chronic Assessment and Plan: Hgb A1c elevated at 10.3 Continue SSI and ACHS accuchecks (4) Hypertension Current Visit: Yes Status: Chronic Assessment and Plan: Elevated on admission with SBP in the 170s Home metoprolol was d/c'ed due to bradycardia - continue to hold Intermitted highs with SBP in 160s and lows with SBP 100s Repeat orthostatic vitals Continue home Cozaar and Triamterene/HCTZ Continue to monitor (5) Hyperlipidemia Current Visit: Yes Status: Chronic Assessment and Plan: Pt is allergic to statins Lipid panel revealed total cholesterol controlled at 170 Triglycerides elevated at 203 (6) UTI (urinary tract infection) Current Visit: Yes Status: Acute Assessment and Plan: UA on admission showed trace leukocyte esterase and many bacteria Urine culture preliminary results - Gram negative rods Start po Levaquin daily DVT Prophylaxis: SQ Heparin - Time Spent with Patient Total time spent is greater than 50% in coordination of care (as documented) at patient's floor/unit and/or counseling patient: Internal Medicine: Result - Labs CBC & Chem 7: 10/25/18 05:41 10/25/18 05:41 Labs: Short CBC 10/25/18 Range/Units 05:41 WBC 7.1 (4.3-11.1) K/mcL Hgb 11.3 L (11.5-15.4) g/dL Hct 34.7 L (35.3-44.9) % Plt Count 259 (140-400) K/mcL Neutrophils # 3.6 (1.6-8.9) K/mcL BMP 10/25/18 05:41 Sodium 136 Potassium 4.3 Chloride 103 Carbon Dioxide 26 BUN 41 H Creatinine 1.27 H Glucose 214 H Calcium 8.6 - ABG Interpretation ABG results: PT/INR, D-dimer PT 12.0 Seconds (9.4-12.1) 10/24/18 01:21 - Impressions Impressions Chest X-Ray 10/23/18 16:32 IMPRESSION: No evidence of edema or pneumonia. Mild left mid lung linear scarring or atelectasis. D/ / 10/23/2018 16:53:00 Lang Medrano MD / Rosa Maria Miles Interpreting Provider: Lang Medrano MD Echocardiogram 10/24/18 08:46 Impressions: LVEF 60-65%. Mild left ventricular diastolic dysfunction. Definity echo contrast was used. RV not well visualized. Mild tricuspid regurgitation. No pulmonary hypertension. Left Ventricular Wall Motion: Rest Echo Findings All wall segments showed normal motion. Findings: Study Quality * Technically challenging due to body habitus. ECG Findings * Normal sinus rhythm. Left Ventricle * Mild left ventricular diastolic dysfunction. * Definity echo contrast was used. * There is no LV thrombus. * LVEF 60-65%. * Normal LV chamber size, wall thickness and function. Right Ventricle * RV is not optimally visualized. Left Atrium * Mildly dilated left atrium. Right Atrium * Normal right atrial size. Aortic Valve * No aortic regurgitation. * Aortic valve not well visualized. * No aortic stenosis. Mitral Valve * No mitral regurgitation. * Normal mitral valve structure. * No mitral stenosis. Tricuspid Valve * Tricuspid valve not well visualized. * Mild tricuspid regurgitation. * Estimated RA pressure is 3 mmHg. * Estimated RVSP is 32 mmHg. * No pulmonary hypertension. Pulmonic Valve * Pulmonic valve is not well visualized. * No pulmonic stenosis. * No pulmonic regurgitation. Pulmonary Artery * Pulmonary artery not well visualized. Aorta * Normally sized aortic root. Pericardium * There is no pericardial effusion present. Interatrial Septum * No evidence of PFO by color Doppler. IVC * The IVC is not dilated. Consult Discharge Plan - Plan Referrals: Abdi Lemon DO [Primary Care Provider] - <Luis Taylor - Last Filed: 10/25/18 18:45> Hospitalist Progress Note - Encounter Date of Encounter: 10/25/18 - Exam Vitals: Temp Pulse Resp BP Pulse Ox 98.4 F 76 18 119/52 95 10/25/18 15:28 10/25/18 15:28 10/25/18 15:28 10/25/18 15:28 10/25/18 15:28 - Assessment and Plan (1) Elevated troponin Current Visit: Yes Status: Resolved (2) Insulin dependent diabetes mellitus Current Visit: Yes Status: Chronic (3) Hypertension Current Visit: Yes Status: Chronic (4) Hyperlipidemia Current Visit: Yes Status: Chronic (5) Carotid artery stenosis, symptomatic Current Visit: Yes Status: Acute (6) UTI (urinary tract infection) Current Visit: Yes Status: Acute (7) Orthostasis Current Visit: Yes Status: Acute - Time Spent with Patient Total time spent is greater than 50% in coordination of care (as documented) at patient's floor/unit and/or counseling patient: Internal Medicine: Result - Labs CBC & Chem 7: 10/25/18 05:41 10/25/18 05:41 Labs: Short CBC 10/25/18 Range/Units 05:41 WBC 7.1 (4.3-11.1) K/mcL Hgb 11.3 L (11.5-15.4) g/dL Hct 34.7 L (35.3-44.9) % Plt Count 259 (140-400) K/mcL Neutrophils # 3.6 (1.6-8.9) K/mcL BMP 10/25/18 05:41 Sodium 136 Potassium 4.3 Chloride 103 Carbon Dioxide 26 BUN 41 H Creatinine 1.27 H Glucose 214 H Calcium 8.6 - ABG Interpretation ABG results: PT/INR, D-dimer PT 12.0 Seconds (9.4-12.1) 10/24/18 01:21 - Impressions Impressions Chest X-Ray 10/23/18 16:32 IMPRESSION: No evidence of edema or pneumonia. Mild left mid lung linear scarring or atelectasis. D/ / 10/23/2018 16:53:00 Lang Medrano MD / Rosa Maria Miles Interpreting Provider: Lang Medrano MD Echocardiogram 10/24/18 08:46 Impressions: LVEF 60-65%. Mild left ventricular diastolic dysfunction. Definity echo contrast was used. RV not well visualized. Mild tricuspid regurgitation. No pulmonary hypertension. Left Ventricular Wall Motion: Rest Echo Findings All wall segments showed normal motion. Findings: Study Quality * Technically challenging due to body habitus. ECG Findings * Normal sinus rhythm. Left Ventricle * Mild left ventricular diastolic dysfunction. * Definity echo contrast was used. * There is no LV thrombus. * LVEF 60-65%. * Normal LV chamber size, wall thickness and function. Right Ventricle * RV is not optimally visualized. Left Atrium * Mildly dilated left atrium. Right Atrium * Normal right atrial size. Aortic Valve * No aortic regurgitation. * Aortic valve not well visualized. * No aortic stenosis. Mitral Valve * No mitral regurgitation. * Normal mitral valve structure. * No mitral stenosis. Tricuspid Valve * Tricuspid valve not well visualized. * Mild tricuspid regurgitation. * Estimated RA pressure is 3 mmHg. * Estimated RVSP is 32 mmHg. * No pulmonary hypertension. Pulmonic Valve * Pulmonic valve is not well visualized. * No pulmonic stenosis. * No pulmonic regurgitation. Pulmonary Artery * Pulmonary artery not well visualized. Aorta * Normally sized aortic root. Pericardium * There is no pericardial effusion present. Interatrial Septum * No evidence of PFO by color Doppler. IVC * The IVC is not dilated. - Attending Attestation I examined this patient and my medical decision-making was reviewed with the Resident Physician on 10/25/18. I agree with the documented findings, di sposition and treatment plan as described except to the extent set forth below. Ms Story is currently in observation for vertigo symptoms. She remains orthostatic. She remains moderate to high risk. Ms Story is still dizzy when standing. No fever or chills. No CP or SOB. No focal weakness. Exam alert Comfortable Mucus membranes dry Heart not tachy No wheeze abd soft No focal weakness Carotid duplex abnormal I/P 1. Vertigo - orthostatic positive. 2. Possible carotid obstruction - check CTA in AM after fluids 3. TOI - fluids today Further diagnoses and plan as above. <Cook,Banks A - Last Filed: 10/25/18 17:31> (1) Carotid artery stenosis, symptomatic Qualifiers: Laterality: bilateral Qualified Code(s): I65.23 - Occlusion and stenosis of bilateral carotid arteries (4) Hypertension Qualifiers: Hypertension type: essential hypertension Qualified Code(s): I10 - Essential (primary) hypertension (5) Hyperlipidemia Qualifiers: Hyperlipidemia type: mixed hyperlipidemia Qualified Code(s): E78.2 - Mixed hyperlipidemia (6) UTI (urinary tract infection) Qualifiers: Urinary tract infection type: acute cystitis Hematuria presence: without hematuria Qualified Code(s): N30.00 - Acute cystitis without hematuria <Luis Taylor A - Last Filed: 10/25/18 18:45> (3) Hypertension Qualifiers: Hypertension type: essential hypertension Qualified Code(s): I10 - Essential (primary) hypertension (4) Hyperlipidemia Qualifiers: Hyperlipidemia type: mixed hyperlipidemia Qualified Code(s): E78.2 - Mixed hyperlipidemia (5) Carotid artery stenosis, symptomatic Qualifiers: Laterality: bilateral Qualified Code(s): I65.23 - Occlusion and stenosis of bilateral carotid arteries (6) UTI (urinary tract infection) Qualifiers: Urinary tract infection type: acute cystitis Hematuria presence: without hematuria Qualified Code(s): N30.00 - Acute cystitis without hematuria
[2018-10-25] MEDS: Insulin DETEMIR 100 UNIT/ML X5UNITS SQ SCH (21:45)
[2018-10-26] MEDS: *HR* Heparin 5,000 UNIT/ML VIAL SQ SCH ×2 (05:26→16:50)
[2018-10-26 05:28] LABS: Basophils # 0.1 K/mcL (0.0-0.2); Eosinophils # 0.6 K/mcL (0.0-0.6); Eosinophils % 8.1 %; Hematocrit 37.7 % (35.3-44.9); Hemoglobin 12.3 g/dL (11.5-15.4); Immature Granulocytes % 0.1 % (0-4); Lymphocytes # 2.1 K/mcL (0.6-4.6); Mean Corpuscular HGB Conc 32.6 g/dL (31.6-35.5); Mean Corpuscular Hemoglobin 29.2 pg (28.0-33.3); Mean Corpuscular Volume 89.5 fL (83.0-100.0); Mean Platelet Volume 10.7 fL (9.4-12.4); Monocytes # 0.8 K/mcL (0.0-1.3); Monocytes % 11.4 %; Neutrophils # 3.3 K/mcL (1.6-8.9); Platelet Count 274 K/mcL (140-400); Red Blood Count 4.21 M/mcL (3.82-4.97); Red Cell Distribution Width 12.5 % (11.5-14.5); Segmented Neutrophils % 48.4 %
[2018-10-26 05:46] LABS: BUN/Creatinine Ratio 32 (6-26); Blood Urea Nitrogen 30 mg/dL (8-23); Calcium 9.5 mg/dL (8.6-10.3); Carbon Dioxide 26 mEq/L (23-29); Chloride 103 mEq/L (98-107); Glucose 111 mg/dL (70-105); Osmolality,Calculated 297 (280-300); Potassium 3.7 mEq/L (3.5-5.1); Sodium 140 mEq/L (136-145); eGFR For Non-African Americans 59 (> 60)
[2018-10-26] MEDS: Insulin LISPRO 300 UNITS/3 ML VIAL SQ SCH ×5 (07:47→21:26)
[2018-10-26] MEDS: levoFLOXacin 250 MG TABLET PO SCH (07:52)
[2018-10-26] MEDS: Aspirin Enteric Coated 81 MG Tablet PO SCH (07:52)
[2018-10-26] MEDS ORDERED: Isovue-370 500 ML BOTTLE IVP ONE (08:15)
--- NOTE | 2018-10-26 08:22 | Internal Med Progress Note ---
<Courtney Lugo - Last Filed: 10/26/18 14:10> Hospitalist Progress Note - Encounter Date of Encounter: 10/26/18 - Exam Vitals: Temp Pulse Resp BP Pulse Ox 99.0 F 74 18 133/75 96 10/26/18 07:30 10/26/18 07:30 10/26/18 07:30 10/26/18 07:30 10/26/18 07:30 - Assessment and Plan (1) Elevated troponin Current Visit: Yes Status: Resolved (2) Insulin dependent diabetes mellitus Current Visit: Yes Status: Chronic (3) Hypertension Current Visit: Yes Status: Chronic (4) Hyperlipidemia Current Visit: Yes Status: Chronic (5) Carotid artery stenosis, symptomatic Current Visit: Yes Status: Acute (6) UTI (urinary tract infection) Current Visit: Yes Status: Acute (7) Orthostasis Current Visit: Yes Status: Acute - Time Spent with Patient Total time spent is greater than 50% in coordination of care (as documented) at patient's floor/unit and/or counseling patient: Internal Medicine: Result - Labs CBC & Chem 7: 10/26/18 04:19 10/26/18 04:19 Labs: Short CBC 10/26/18 Range/Units 04:19 WBC 6.9 (4.3-11.1) K/mcL Hgb 12.3 (11.5-15.4) g/dL Hct 37.7 (35.3-44.9) % Plt Count 274 (140-400) K/mcL Neutrophils # 3.3 (1.6-8.9) K/mcL BMP 10/26/18 04:19 Sodium 140 Potassium 3.7 Chloride 103 Carbon Dioxide 26 BUN 30 H Creatinine 0.94 Glucose 111 H Calcium 9.5 - ABG Interpretation ABG results: PT/INR, D-dimer PT 12.0 Seconds (9.4-12.1) 10/24/18 01:21 - Impressions Impressions Chest X-Ray 10/23/18 16:32 IMPRESSION: No evidence of edema or pneumonia. Mild left mid lung linear scarring or atelectasis. D/ / 10/23/2018 16:53:00 Lang Medrano MD / Rosa Maria Miles Interpreting Provider: Lang Medrano MD Echocardiogram 10/24/18 08:46 Impressions: LVEF 60-65%. Mild left ventricular diastolic dysfunction. Definity echo contrast was used. RV not well visualized. Mild tricuspid regurgitation. No pulmonary hypertension. Left Ventricular Wall Motion: Rest Echo Findings All wall segments showed normal motion. Findings: Study Quality * Technically challenging due to body habitus. ECG Findings * Normal sinus rhythm. Left Ventricle * Mild left ventricular diastolic dysfunction. * Definity echo contrast was used. * There is no LV thrombus. * LVEF 60-65%. * Normal LV chamber size, wall thickness and function. Right Ventricle * RV is not optimally visualized. Left Atrium * Mildly dilated left atrium. Right Atrium * Normal right atrial size. Aortic Valve * No aortic regurgitation. * Aortic valve not well visualized. * No aortic stenosis. Mitral Valve * No mitral regurgitation. * Normal mitral valve structure. * No mitral stenosis. Tricuspid Valve * Tricuspid valve not well visualized. * Mild tricuspid regurgitation. * Estimated RA pressure is 3 mmHg. * Estimated RVSP is 32 mmHg. * No pulmonary hypertension. Pulmonic Valve * Pulmonic valve is not well visualized. * No pulmonic stenosis. * No pulmonic regurgitation. Pulmonary Artery * Pulmonary artery not well visualized. Aorta * Normally sized aortic root. Pericardium * There is no pericardial effusion present. Interatrial Septum * No evidence of PFO by color Doppler. IVC * The IVC is not dilated. Consult Discharge Plan - Plan Referrals: Abdi Lemon DO [Primary Care Provider] - - Attending Attestation I examined this patient and my medical decision-making was reviewed with the Resident Physician Dr Esquivel. I agree with the documented findings, disposition and treatment plan as described except to the extent set forth below. Ms Story is currently in observation for vertigo symptoms. She remains dizzy. Ms Story is still dizzy with any movement of the head. she feels bp elevation overnight worsened dizziness. Currently resting in bed and no dizziness when lying still. no cp, pressure, palpitations, sob or syncope gen- alert, awake,appears stated age eyes- pupils equal round , eom intact cv- reg rate and rhythm, normal s1,s2, no murmurs appreciated, no le edema lungs- ctabl, no wheezing, rhonchi or crackles, normal resp effort ra neuro- AAOx3, CN grossly intact CTA neck pending 1. Vertigo - orthostatic positive now resolved, s/p IVFs, CUS abnormal, remainder work up unremarkable 2. Possible carotid obstruction - CTA done and pending read, consult vasc surg pending result 3. TOI - resolved with IVFs 4. UTI Ecoli- levaquin previously, sensitivities are finalized and resistant to levaquin as well as a handful of other abx, given her pcn allergy changed to macrobid 5. HTN- BP elevation last night, now normotensive, cont to monitor, will require outpt fu, cont home triamterene/hctz Further diagnoses and plan as noted by resident <Jose Esquivel - Last Filed: 10/26/18 16:38> Hospitalist Progress Note - Encounter Date of Encounter: 10/26/18 Time of Encounter: 09:30 - Subjective Interval History: Pt seen and examined at bedside. States she had another episode of dizziness associated with an episode of hypertension. Denies any fever, chills, chest pain, shortness of breath, abdominal pain, nausea, vomiting, numbness, or tingling. No urinary symptoms. - Exam Vitals: Temp Pulse Resp BP Pulse Ox 99.0 F 74 18 133/75 96 10/26/18 07:30 10/26/18 07:30 10/26/18 07:30 10/26/18 07:30 10/26/18 07:30 Exam: Constitutional: obese female in no acute distress Head: normocephalic and atraumatic Eyes: PERRL, EOMI, sclera anicteric, conjunctiva pink Neck: supple, trachea midline, no carotid bruits appreciated Lungs: CTA bilaterally. non-labored breathing. no wheezes, rales, or rhonchi Heart: RRR +S1 +s2 No murmurs, clicks, or rubs appreciated GI: abdomen soft, non-tender, non-distended. normoactive bowel sounds Extremities: warm, peripheral pulses palpable and symmetrical. no edema, cyanosis, or calf tenderness. Neuro: A&Ox3. no focal deficits. no speech difficulty or abnormality. Skin: warm, dry, intact. - Assessment and Plan (1) Carotid artery stenosis, symptomatic Current Visit: Yes Status: Acute Assessment and Plan: Presented with 2 days duration of dizziness No history of prior CVA or TIA CT head was negative MRI head was negative for acute abnormality, did show chronic microvascular ischemic changes Echocardiogram - LVEF 60-65%. Mild left ventricular diastolic dysfunction. RV not well visualized. Mild tricuspid regurgitation. Carotid dopplers - Right proximal ICA has a severe, 60-79% stenosis. Left mid ICA has a moderate, 40-59% stenosis. A1c elevated at 10.8 - follow up with PCP on discharge TSH and B12 normal Orthostatic change seen in BP from sitting to standing CTA neck from this morning revealed the following findings - Approximately 70-75% focal stenosis of the proximal right ICA by NASCET criteria. - No flow limiting stenosis of the left ICA by NASCET criteria. - Moderate stenosis at the origin of both vertebral arteries. Will obtain a vascular surgery consult and await recommendations Continue HTN and DM2 management (2) Orthostasis Current Visit: Yes Status: Acute Assessment and Plan: Noted on vital signs from 10/24/18 from sitting to standing positions Again noted on vital signs from 10/25/18 from lying to sitting positions Repeated again today after IV fluids, no orthostatic change between position changes Likely related to volume status May be source of dizziness, but likely multifactorial Will continue to monitor volume status closely Encourage follow up with PCP at time of discharge (3) UTI (urinary tract infection) Current Visit: Yes Status: Acute Assessment and Plan: UA on admission showed trace leukocyte esterase and many bacteria Was receiving Levaquin, however culture grew E coli resistant to Levaquin Start Macrobid (4) Elevated troponin Current Visit: Yes Status: Resolved Assessment and Plan: Continues to deny chest pain Mild elevation at 0.04 on admission EKG in ED showed bradycardia but no ST-T wave changes Repeat troponin this morning 0.03 Continue ASA 81mg daily Echo results as above No further treatment at this time. (5) Insulin dependent diabetes mellitus Current Visit: Yes Status: Chronic Assessment and Plan: Hgb A1c elevated at 10.3 Continue SSI and ACHS accuchecks (6) Hypertension Current Visit: Yes Status: Chronic Assessment and Plan: Elevated on admission with SBP in the 170s Home metoprolol was d/c'ed due to bradycardia - continue to hold Intermitted highs with SBP in 160s and lows with SBP 100s Repeat orthostatic vitals Continue home Cozaar and Triamterene/HCTZ Continue to monitor (7) Hyperlipidemia Current Visit: Yes Status: Chronic Assessment and Plan: Pt is allergic to statins Lipid panel revealed total cholesterol controlled at 170 Triglycerides elevated at 203 DVT Prophylaxis: SQ Heparin - Time Spent with Patient Total time spent is greater than 50% in coordination of care (as documented) at patient's floor/unit and/or counseling patient: Internal Medicine: Result - Labs CBC & Chem 7: 10/26/18 04:19 10/26/18 04:19 Labs: Short CBC 10/26/18 Range/Units 04:19 WBC 6.9 (4.3-11.1) K/mcL Hgb 12.3 (11.5-15.4) g/dL Hct 37.7 (35.3-44.9) % Plt Count 274 (140-400) K/mcL Neutrophils # 3.3 (1.6-8.9) K/mcL BMP 10/26/18 04:19 Sodium 140 Potassium 3.7 Chloride 103 Carbon Dioxide 26 BUN 30 H Creatinine 0.94 Glucose 111 H Calcium 9.5 - ABG Interpretation ABG results: PT/INR, D-dimer PT 12.0 Seconds (9.4-12.1) 10/24/18 01:21 - Impressions Impressions Chest X-Ray 10/23/18 16:32 IMPRESSION: No evidence of edema or pneumonia. Mild left mid lung linear scarring or atelectasis. D/ / 10/23/2018 16:53:00 Lang Medrano MD / Rosa Maria Miles Interpreting Provider: Lang Medrano MD Echocardiogram 10/24/18 08:46 Impressions: LVEF 60-65%. Mild left ventricular diastolic dysfunction. Definity echo contrast was used. RV not well visualized. Mild tricuspid regurgitation. No pulmonary hypertension. Left Ventricular Wall Motion: Rest Echo Findings All wall segments showed normal motion. Findings: Study Quality * Technically challenging due to body habitus. ECG Findings * Normal sinus rhythm. Left Ventricle * Mild left ventricular diastolic dysfunction. * Definity echo contrast was used. * There is no LV thrombus. * LVEF 60-65%. * Normal LV chamber size, wall thickness and function. Right Ventricle * RV is not optimally visualized. Left Atrium * Mildly dilated left atrium. Right Atrium * Normal right atrial size. Aortic Valve * No aortic regurgitation. * Aortic valve not well visualized. * No aortic stenosis. Mitral Valve * No mitral regurgitation. * Normal mitral valve structure. * No mitral stenosis. Tricuspid Valve * Tricuspid valve not well visualized. * Mild tricuspid regurgitation. * Estimated RA pressure is 3 mmHg. * Estimated RVSP is 32 mmHg. * No pulmonary hypertension. Pulmonic Valve * Pulmonic valve is not well visualized. * No pulmonic stenosis. * No pulmonic regurgitation. Pulmonary Artery * Pulmonary artery not well visualized. Aorta * Normally sized aortic root. Pericardium * There is no pericardial effusion present. Interatrial Septum * No evidence of PFO by color Doppler. IVC * The IVC is not dilated. <Courtney Lugo M - Last Filed: 10/26/18 14:10> (3) Hypertension Qualifiers: Hypertension type: essential hypertension Qualified Code(s): I10 - Essential (primary) hypertension (4) Hyperlipidemia Qualifiers: Hyperlipidemia type: mixed hyperlipidemia Qualified Code(s): E78.2 - Mixed hyperlipidemia (5) Carotid artery stenosis, symptomatic Qualifiers: Laterality: bilateral Qualified Code(s): I65.23 - Occlusion and stenosis of bilateral carotid arteries (6) UTI (urinary tract infection) Qualifiers: Urinary tract infection type: acute cystitis Hematuria presence: without hematuria Qualified Code(s): N30.00 - Acute cystitis without hematuria <Jose Esquivel A - Last Filed: 10/26/18 16:38> (1) Carotid artery stenosis, symptomatic Qualifiers: Laterality: bilateral Qualified Code(s): I65.23 - Occlusion and stenosis of bilateral carotid arteries (3) UTI (urinary tract infection) Qualifiers: Urinary tract infection type: acute cystitis Hematuria presence: without hematuria Qualified Code(s): N30.00 - Acute cystitis without hematuria (6) Hypertension Qualifiers: Hypertension type: essential hypertension Qualified Code(s): I10 - Essential (primary) hypertension (7) Hyperlipidemia Qualifiers: Hyperlipidemia type: mixed hyperlipidemia Qualified Code(s): E78.2 - Mixed hyperlipidemia
--- NOTE | 2018-10-26 12:42 | Vascular/Endovasc Consult Note ---
Date of Encounter: 10/26/18 Time of Encounter: 12:10 Assessment and Plan (1) Carotid stenosis, bilateral Current Visit: Yes Status: Chronic The pathophysiology and natural history of carotid stenosis was discussed the patient and all questions were answered. The patient denies any symptoms of CVA, TIA or amaurosis fugax. She denies headaches or visual disturbances. Her carotid duplex revealed a 60-79% right internal carotid stenosis and a 40-59% l eft internal carotid stenosis. CT angiography revealed a 70% right internal carotid artery stenosis and no hemodynamically significant left internal carotid artery stenosis. Her MRI is negative for recent or prior cerebrovascular accident. Given these findings are symptoms do not appear to be related to her carotid stenosis. At this time medical therapy with aspirin and atherosclerotic risk factor reduction is recommended. The patient was advised to seek immediate medical attention for any signs or symptoms of CVA, TIA or amaurosis fugax. She may follow-up in vascular clinic in 6 months with repeat carotid duplex. (2) Insulin dependent diabetes mellitus Current Visit: Yes Status: Chronic (3) Hypertension Current Visit: Yes Status: Chronic She was counseled regarding atherosclerotic risk factor reduction. Qualifiers: Hypertension type: essential hypertension Qualified Code(s): I10 - Essential (primary) hypertension (4) Hyperlipidemia Current Visit: Yes Status: Chronic Qualifiers: Hyperlipidemia type: mixed hyperlipidemia Qualified Code(s): E78.2 - Mixed hyperlipidemia - History of Present Illness Consult date: 10/26/18 Requesting physician: Jose Esquivel Consult reason: Carotid stenosis Chief complaint: Dizziness, hypertension History of present illness: Ms. Story is a 68 year old female with a history of diabetes, hypertension and hyperlipidemia. The patient presented to [facility] with complaints of dizziness and hypertension. She reports her dizziness was most frequently associated with rising from a seated position. She denies any syncope. She was admitted for further evaluation. As part of her evaluation she underwent a carotid duplex. Duplex revealed significant carotid stenosis. Vascular surgery was counseled for further evaluation she denies any recent symptoms of CVA, TIA or amaurosis fugax. She denies headaches or visual disturbances. She denies any chest pain or shortness of breath. Past Med Surg Social Fam HX - Past Medical History Medical history: arthritis, diabetes, fibromyalgia, hypertension Psychiatric history: no psych history - Past Surgical History Surgical History: cholecystectomy, hysterectomy Additional surgical history: carpal tunnel - Social History Smoking Status: Never smoker Smokeless Tobacco Status: No Alcohol use: none Drug use: none Medications and Allergies Alendronate Sodium [Fosamax] 70 mg PO MO 10/23/18 [History] Aspirin [Lo-Dose Aspirin EC] 81 mg PO DAILY 10/23/18 [History] Duloxetine HCl [Cymbalta] 60 mg PO DAILY 10/23/18 [History] Insulin ASPART [NovoLOG] 10 unit SQ DAILY@1700 10/23/18 [History] Insulin Glargine,Hum.rec.anlog [Basaglar Kwikpen U-100] 60 unit SQ HS 10/23/18 [History] Losartan [Cozaar] 50 mg PO BID 10/23/18 [History] Metoprolol [Lopressor] 25 mg PO BID 10/23/18 [History] Pioglitazone [Actos] 45 mg PO 0800 10/23/18 [History] Triamterene/Hydrochlorothiazid [Triamterene-Hctz 75-50 mg Tab] 1 each PO DAILY 10/23/18 [History] Allergy/AdvReac Type Severity Reaction Status Date / Time iodine Allergy Rash Verified 06/06/18 10:22 Penicillins Allergy Rash Verified 06/06/18 10:22 Rubqjtj-Okg-Ant Reductase Allergy Rash Verified 06/06/18 10:22 Inhibitor ivp dye Allergy Rash Uncoded 05/20/17 15:27 All Systems Review: The remainder of the systems were reviewed and are negative - Constitutional Constitutional: no chills, no fever(s) - Cardiovascular Cardiovascular: no chest pain at rest, no dyspnea at rest - Neurological Neurological: no abnormal speech, no focal weakness, no numbness Exam Vital Signs, Last 4 Hours Temp Pulse Pulse Pulse Pulse Resp BP 10/26/18 11:29 98.3 F 73 73 79 81 19 144/74 BP BP BP Pulse Ox 10/26/18 11:29 144/74 147/77 131/73 97 General: Present: Conversant, No Apparent Distress HEENT: Present: Atraumatic, Normocephaly, Trachea midline, Pupils equal Neck: Present: Right Carotid bruit. Absent: JVD, Lymphadenopathy, Left Carotid bruit Cardiac: Present: Reg Rate and Rhythm, Normal S1 and S2 Lungs: Present: Normal Breath Sounds, No Wheeze, Rales, Rhonchi Neuro: Present: Alert and responsive, No focal deficits noted, Cranial nerves grossly intact, Motor nerves grossly intact, Sensory nerves grossly intact Abdomen: Present: Soft, Non-tender. Absent: Masses Vascular: Present: Normal capillary refill, Pulse, normal. Absent: Cyanosis, Edema Skin: Present: No rashes noted on visualized skin Musculoskeletal: Present: No Chest Wall Tenderness Consult Discharge Plan - Plan Referrals: Abdi Lemon DO [Primary Care Provider] -
[2018-10-26] MEDS: Nitrofurantoin (BID) 100 MG CAPSULE PO SCH (16:50)
[2018-10-26] MEDS: Insulin DETEMIR 100 UNIT/ML X5UNITS SQ SCH (21:26)
[2018-10-27] MEDS: *HR* Heparin 5,000 UNIT/ML VIAL SQ SCH ×2 (05:16→16:48)
[2018-10-27 05:38] LABS: Basophils # 0.1 K/mcL (0.0-0.2); Basophils % 0.7 %; Eosinophils # 0.5 K/mcL (0.0-0.6); Eosinophils % 6.6 %; Hematocrit 38.1 % (35.3-44.9); Hemoglobin 12.4 g/dL (11.5-15.4); Immature Granulocytes % 0.3 % (0-4); Lymphocytes # 2.2 K/mcL (0.6-4.6); Lymphocytes % 30.1 %; Mean Corpuscular HGB Conc 32.5 g/dL (31.6-35.5); Mean Corpuscular Hemoglobin 28.8 pg (28.0-33.3); Mean Corpuscular Volume 88.4 fL (83.0-100.0); Mean Platelet Volume 10.2 fL (9.4-12.4); Monocytes # 0.8 K/mcL (0.0-1.3); Monocytes % 11.3 %; Neutrophils # 3.6 K/mcL (1.6-8.9); Platelet Count 278 K/mcL (140-400); Red Blood Count 4.31 M/mcL (3.82-4.97); Red Cell Distribution Width 12.7 % (11.5-14.5)
[2018-10-27 05:54] LABS: BUN/Creatinine Ratio 30 (6-26); Blood Urea Nitrogen 33 mg/dL (8-23); Calcium 9.2 mg/dL (8.6-10.3); Carbon Dioxide 26 mEq/L (23-29); Chloride 103 mEq/L (98-107); Glucose 63 mg/dL (70-105); Osmolality,Calculated 289 (280-300); Potassium 4.3 mEq/L (3.5-5.1); Sodium 137 mEq/L (136-145); eGFR For Non-African Americans 50 (> 60)
[2018-10-27] MEDS: Insulin LISPRO 300 UNITS/3 ML VIAL SQ SCH ×5 (07:39→21:47)
[2018-10-27] MEDS: Nitrofurantoin (BID) 100 MG CAPSULE PO SCH ×2 (07:46→16:48)
[2018-10-27] MEDS: Aspirin Enteric Coated 81 MG Tablet PO SCH (07:46)
--- NOTE | 2018-10-27 09:34 | Internal Med Progress Note ---
<Jose Esquivel - Last Filed: 10/27/18 14:42> Hospitalist Progress Note - Encounter Date of Encounter: 10/27/18 Time of Encounter: 09:34 - Subjective Interval History: Pt seen and examined at bedside. States she had another episode of dizziness associated with an episode of hypertension overnight. Denies any fever, chills, chest pain, shortness of breath, abdominal pain, nausea, vomiting, numbness, or tingling. No urinary symptoms. - Exam Vitals: Temp Pulse Resp BP Pulse Ox 98.2 F 70 16 148/85 98 10/27/18 06:59 10/27/18 06:59 10/27/18 06:59 10/27/18 06:59 10/27/18 06:59 Exam: Constitutional: obese female in no acute distress Head: normocephalic and atraumatic Eyes: PERRL, EOMI, sclera anicteric, conjunctiva pink Neck: supple, trachea midline, no carotid bruits appreciated Lungs: CTA bilaterally. non-labored breathing. no wheezes, rales, or rhonchi Heart: RRR +S1 +s2 No murmurs, clicks, or rubs appreciated GI: abdomen soft, non-tender, non-distended. normoactive bowel sounds Extremities: warm, peripheral pulses palpable and symmetrical. no edema, cyanosis, or calf tenderness. Neuro: A&Ox3. no focal deficits. no speech difficulty or abnormality. Skin: warm, dry, intact. - Assessment and Plan (1) Dizziness Current Visit: Yes Status: Acute Assessment and Plan: No history of prior CVA or TIA CT head was negative MRI head was negative for acute abnormality, did show chronic microvascular ischemic changes Echocardiogram - LVEF 60-65%. Mild left ventricular diastolic dysfunction. RV not well visualized. Mild tricuspid regurgitation. Carotid dopplers - Right proximal ICA has a severe, 60-79% stenosis. Left mid ICA has a moderate, 40-59% stenosis. CTA neck with the following findings: - Approximately 70-75% focal stenosis of the proximal right ICA by NASCET criteria. - No flow limiting stenosis of the left ICA by NASCET criteria. - Moderate stenosis at the origin of both vertebral arteries. A1c elevated at 10.8 - follow up with PCP on discharge TSH and B12 normal Orthostatic change seen in BP on 2 separate days, however orthostatic vitals after IV fluid hydration were normal Despite educating patient on carotid stenosis and treatment guidelines, pt was very upset her stenosis is not severe enough for intervention. Discussed her risk factors at length including her HLD with her statin allergy. Continues to refuse statin. Recommended close follow up after discharge for her DM2 and HTN m anagement. Also discussed benefits of weight loss. Neurology to consult as pt refuses to leave until she knows the exact cause of her dizziness stating "If something happens at home it's your fault", despite discussion of resolved orthostasis, treatment for UTI, and vascular surgery recommendations. Appreciate neurology consult and await recs. (2) Insulin dependent diabetes mellitus Current Visit: Yes Status: Chronic Assessment and Plan: Hgb A1c elevated at 10.3 Continue SSI and ACHS accuchecks (3) Hypertension Current Visit: Yes Status: Chronic Assessment and Plan: Elevated on admission with SBP in the 170s Home metoprolol was d/c'ed due to bradycardia - will restart at half home dose, 12.5mg BID Controlled at 130/54 and 148/85 this morning Continue home Cozaar and Triamterene/HCTZ Continue to monitor (4) Hyperlipidemia Current Visit: Yes Status: Chronic Assessment and Plan: Pt is allergic to statins Lipid panel revealed total cholesterol controlled at 170 Triglycerides elevated at 203 Continues to refuse statin despite ASCVD risk recommending high intensity statin (5) Carotid artery stenosis, symptomatic Current Visit: Yes Status: Acute Assessment and Plan: Presented with 2 days duration of dizziness No history of prior CVA or TIA CT head was negative MRI head was negative for acute abnormality, did show chronic microvascular ischemic changes Echocardiogram - LVEF 60-65%. Mild left ventricular diastolic dysfunction. RV not well visualized. Mild tricuspid regurgitation. Carotid dopplers - Right proximal ICA has a severe, 60-79% stenosis. Left mid ICA has a moderate, 40-59% stenosis. A1c elevated at 10.8 - follow up with PCP on discharge TSH and B12 normal Orthostatic change seen in BP from sitting to standing CTA neck from this morning revealed the following findings - Approximately 70-75% focal stenosis of the proximal right ICA by NASCET criteria. - No flow limiting stenosis of the left ICA by NASCET criteria. - Moderate stenosis at the origin of both vertebral arteries. Vascular surgery consulted They recommended medical management of co-morbid conditions including HTN, HLD, and DM2. Follow up as outpatient 6 weeks after discharge with repeat carotid duplex. (6) UTI (urinary tract infection) Current Visit: Yes Status: Acute Assessment and Plan: UA on admission showed trace leukocyte esterase and many bacteria Was receiving Levaquin, however culture grew E coli resistant to Levaquin Continue Macrobid Day 2 (7) Orthostasis Current Visit: Yes Status: Resolved Assessment and Plan: Noted on vital signs from 10/24/18 from sitting to standing positions Again noted on vital signs from 10/25/18 from lying to sitting positions Repeated again on 10/26/18 after IV fluids, no orthostatic change between position changes Orthostasis likely related to volume status Educated on the importance of taking time to move between positions such as from sitting to standing Will continue to monitor volume status closely Encourage follow up with PCP at time of discharge (8) Elevated troponin Current Visit: Yes Status: Resolved Assessment and Plan: Continues to deny chest pain Mild elevation at 0.04 on admission EKG in ED showed bradycardia but no ST-T wave changes Repeat troponin this morning 0.03 Continue ASA 81mg daily Echo results as above No further treatment at this time. DVT Prophylaxis: SQ Heparin - Time Spent with Patient Total time spent is greater than 50% in coordination of care (as documented) at patient's floor/unit and/or counseling patient: Internal Medicine: Result - Labs CBC & Chem 7: 10/27/18 05:18 10/27/18 05:18 Labs: Short CBC 10/27/18 Range/Units 05:18 WBC 7.1 (4.3-11.1) K/mcL Hgb 12.4 (11.5-15.4) g/dL Hct 38.1 (35.3-44.9) % Plt Count 278 (140-400) K/mcL Neutrophils # 3.6 (1.6-8.9) K/mcL BMP 10/27/18 05:18 Sodium 137 Potassium 4.3 Chloride 103 Carbon Dioxide 26 BUN 33 H Creatinine 1.09 Glucose 63 L Calcium 9.2 - ABG Interpretation ABG results: PT/INR, D-dimer PT 12.0 Seconds (9.4-12.1) 10/24/18 01:21 - Impressions Impressions Neck CTA 10/26/18 09:45 IMPRESSION: 1. Approximately 70-75% focal stenosis of the proximal right ICA by NASCET criteria. 2. No flow limiting stenosis of the left ICA by NASCET criteria. 3. Moderate stenosis at the origin of both vertebral arteries. D/ / Tariq Greer MD / Tariq Greer MD Interpreting Provider: Tariq Greer MD Consult Discharge Plan - Plan Referrals: Abdi Lemon DO [Primary Care Provider] - <Courtney Lugo - Last Filed: 10/27/18 15:58> Hospitalist Progress Note - Encounter Date of Encounter: 10/27/18 - Exam Vitals: Temp Pulse Resp BP Pulse Ox 98.1 F 70 16 135/73 95 10/27/18 11:37 10/27/18 11:37 10/27/18 11:37 10/27/18 11:37 10/27/18 11:37 - Assessment and Plan (1) Elevated troponin Current Visit: Yes Status: Resolved (2) Insulin dependent diabetes mellitus Current Visit: Yes Status: Chronic (3) Hypertension Current Visit: Yes Status: Chronic (4) Hyperlipidemia Current Visit: Yes Status: Chronic (5) Carotid artery stenosis, symptomatic Current Visit: Yes Status: Acute (6) UTI (urinary tract infection) Current Visit: Yes Status: Acute (7) Orthostasis Current Visit: Yes Status: Resolved - Time Spent with Patient Total time spent is greater than 50% in coordination of care (as documented) at patient's floor/unit and/or counseling patient: Internal Medicine: Result - Labs CBC & Chem 7: 10/27/18 05:18 10/27/18 05:18 Labs: Short CBC 10/27/18 Range/Units 05:18 WBC 7.1 (4.3-11.1) K/mcL Hgb 12.4 (11.5-15.4) g/dL Hct 38.1 (35.3-44.9) % Plt Count 278 (140-400) K/mcL Neutrophils # 3.6 (1.6-8.9) K/mcL BMP 10/27/18 05:18 Sodium 137 Potassium 4.3 Chloride 103 Carbon Dioxide 26 BUN 33 H Creatinine 1.09 Glucose 63 L Calcium 9.2 - ABG Interpretation ABG results: PT/INR, D-dimer PT 12.0 Seconds (9.4-12.1) 10/24/18 01:21 - Attending Attestation I examined this patient and my medical decision-making was reviewed with the Resident Physician Dr Esquivel. I agree with the documented findings, disposition and treatment plan as described except to the extent set forth below. Ms Story is currently in observation for vertigo symptoms. Awake, Dr Esquivel at bedside. Pt upset that her ICA stenosis is not severe enough to have intervention and notes "it'll be this places fault when i go home and stroke out". She has already had discussion with vasc surg, but I reiterated to her treatment guidelines and recommendation for appropriate time of intervention which vasc surg does not deem to be at this time for all the reasons they noted to her and CT finding of degree of stenosis and I agree. We discussed at length her various risk factors for heart attack and stroke and modifications she must make as outptatinet to reduce risk of heart attack and stroke. She refuses statin bc it causes her rash. She understands the benefit and risk reduction of a statin. Also discussed diabetes management, BP control, diet and exercise and encouraged weight loss as well as close fu with outpt providers and vasc surg for surveillance of ICA stenosis. She is reporting her Bp is too high and was 180s/70s, which it was on 10/25 but has been improved over last two days. She states she will "stroke out and drop ". She is upset previous provider stopped metoprolol bc her bp is best controlled on combo of her home 3 drug regimen (though she is also noting bps w ere running high when she sporadically checks them 2-3 x daily at home). Discussed low heart rate as reason med was previously held. She wants it reintroduced for improved bp control as opposed to adjusting doses of other meds. She was educated on risks of bradycardia not limited to dizziness, syncope and falls. She states her bp control is a long standing issue and her doctors have instructed her to work on her anger at home, as bps are good in the office. She is agreeable to lower than home dose metoprolol today and Bp and HR monitoring. She notes dizziness is improved, but again, is stating she needs to know exact cause of her dizziness (despite being told she was orthostatic and no longer is, and she had UTI and that was surg does not feel it's from ICA stenosis) bc "if something happens at home it's your fault" She is agreeable to additional input by neurology today. goal is dc to home in am pendign bp/hr and neuro recs and she agrees. gen- alert, awake,appears stated age eyes- pupils equal round , eom intact cv- reg rate and rhythm, normal s1,s2, no murmurs appreciated lungs- ctabl, no wheezing, rhonchi or crackles, normal resp effort ra neuro- AAOx3, CN grossly intact 1. Dizziness, improved with IVFs and UTI treatment - neuro eval, she is independent in ambulation and ADLs such as bathing/dressing inpt and does not have any pt/ot needs and has not demonstrated being a fall risk 2. ICA stenosis - CTA 70% stenosis, vasc surg rec for fu with Dr Macdonald and repeat CUS in 6 (resident note inaccurately says 6 weeks) , risk reduction, pt refuses statin as causes rash, cont asa 3. UTI Ecoli- macrobid 4. HTN- cont to monitor, will require outpt fu, cont home triamterene/hctz, cozaar and reintroduce metoprolol at lower than home dose and monitor bp/hr today Further diagnoses and plan as noted by resident <Jose Esquivel - Last Filed: 10/27/18 14:42> (3) Hypertension Qualifiers: Hypertension type: essential hypertension Qualified Code(s): I10 - Essential (primary) hypertension (4) Hyperlipidemia Qualifiers: Hyperlipidemia type: mixed hyperlipidemia Qualified Code(s): E78.2 - Mixed hyperlipidemia (5) Carotid artery stenosis, symptomatic Qualifiers: Laterality: bilateral Qualified Code(s): I65.23 - Occlusion and stenosis of bilateral carotid arteries (6) UTI (urinary tract infection) Qualifiers: Urinary tract infection type: acute cystitis Hematuria presence: without hematuria Qualified Code(s): N30.00 - Acute cystitis without hematuria <Courtney Lugo - Last Filed: 10/27/18 15:58> (3) Hypertension Qualifiers: Hypertension type: essential hypertension Qualified Code(s): I10 - Essential (primary) hypertension (4) Hyperlipidemia Qualifiers: Hyperlipidemia type: mixed hyperlipidemia Qualified Code(s): E78.2 - Mixed hyperlipidemia (5) Carotid artery stenosis, symptomatic Qualifiers: Laterality: bilateral Qualified Code(s): I65.23 - Occlusion and stenosis of bilateral carotid arteries (6) UTI (urinary tract infection) Qualifiers: Urinary tract infection type: acute cystitis Hematuria presence: without hematuria Qualified Code(s): N30.00 - Acute cystitis without hematuria
--- NOTE | 2018-10-27 11:04 | Neurology - Consult Note ---
Addendum entered and electronically signed by Robert Camacho MD 10/27/18 17:21: I did a [id number] evaluation with the patient in the presence of nurse practitioner Dawson Zaragoza. Case discussed and imaging studies reviewed together and I agree with his history taking, physical examination, assessment and plan outlined below. In summary, this is a 68-year-old woman with past medical history significant for diabetes hypertension obesity hyperlipidemia who developed first episode of acute onset of dizziness initially described as vertiginous feeling associated with balance difficulty that partially improved within 24 hours. MRI of the brain showed no acute intracranial abnormality. CT has REM of the neck showed 70-75% right ICA stenosis as well as moderate stenosis of both vertebral arteries. Clinically, patient has rather nonfocal neurological examination except unsteady gait mainly truncal in nature. Patient has no nystagmus, no diplopia, no other cranial nerve deficits therefore it is unlikely caused by vertebral basilar insufficiency. Her symptoms are due to prolonged to be typical positional vertigo. Likely were dealing with a type of vestibular dysfunction but again she has no hearing loss or tinnitus and she is not having any autonomic symptoms. Patient has not been responding to the use of anti-vert. Treatment is nonspecific and would include adequate hydration and bed rest Patient certainly needs long-term monitoring with vascular surgery for finding of significant right ICA stenosis. It is thought that this finding is not the cause of her clinical symptoms. Addendum entered and electronically signed by Dawson Zaragoza 10/27/18 16:28: Original Note: Date of Encounter: 10/27/18 Time of Encounter: 10:58 Assessment and Plan (1) Dizziness Current Visit: Yes Status: Acute A&P Pt presented to ED in a hypertensive state, BP of 167/74 Carotid US indicated 60-79% stenosis of the right internal carotid CT head was negative for any intracranial findings Brain MRI negative Echocardiogram WNL with EF of 60-65% CTA of neck indicated moderate stenosis of the vertebral region Continue to f/u with [facility] us in 6 mo to monitor stenosis History of Present Illness Chief complaint: dizziness HPI: Mrs. Story is a pleasant 68 y/o female with PMHx of insulin-dependent DM, htn, hld, and fibromyalgia presenting with concerns for dizziness beginning 5 days ago on Wednesday morning when she woke up. At that time she woke with a headache starting bilaterally at the occipital region and stretching around to the frontal region. Her headache was accompanied by some blurry vision but no diplopia. Pt denies any changes in gait, balance, or hearing. She denies any weakness or numbness/tingling at the time. Her headache worsened up until Wednesday at which point she took Tylenol with some relief. However, her dizziness persisted and she eventually had a fall which urged her to come to the ED. Her fall was not accompanied by any loss of consciousness or head trauma. Pt has never had sx like this before or experienced dizziness before. According to the pt there is currently no specific exacerbating factors to her dizziness other than when she looks down however, early in the course the dizziness with aggravated rising to a standing position with positive orthostasis. She feels that her dizziness has been improving over the last 24 hours. Past Med Surg Social Fam HX - Past Medical History Medical history: arthritis, diabetes, fibromyalgia, hypertension Psychiatric history: no psych history - Past Surgical History Surgical History: cholecystectomy, hysterectomy Additional surgical history: carpal tunnel - Social History Smoking Status: Never smoker Smokeless Tobacco Status: No Alcohol use: none Drug use: none - Additional Family History Additional family history: Reviewed and noncontributory Medications and Allergies Alendronate Sodium [Fosamax] 70 mg PO MO 10/23/18 [History] Aspirin [Lo-Dose Aspirin EC] 81 mg PO DAILY 10/23/18 [History] Duloxetine HCl [Cymbalta] 60 mg PO DAILY 10/23/18 [History] Insulin ASPART [NovoLOG] 10 unit SQ DAILY@1700 10/23/18 [History] Insulin Glargine,Hum.rec.anlog [Basaglar Kwikpen U-100] 60 unit SQ HS 10/23/18 [History] Losartan [Cozaar] 50 mg PO BID 10/23/18 [History] Metoprolol [Lopressor] 25 mg PO BID 10/23/18 [History] Pioglitazone [Actos] 45 mg PO 0800 10/23/18 [History] Triamterene/Hydrochlorothiazid [Triamterene-Hctz 75-50 mg Tab] 1 each PO DAILY 10/23/18 [History] Allergy/AdvReac Type Severity Reaction Status Date / Time iodine Allergy Rash Verified 06/06/18 10:22 Penicillins Allergy Rash Verified 10/01/18 10:22 Chxhkmp-Tie-Deg Reductase Allergy Rash Verified 06/06/18 10:22 Inhibitor ivp dye Allergy Rash Uncoded 05/20/17 15:27 All Systems: The remainder of the systems were reviewed and are negative Review of Systems: REVIEW OF SYSTEMS GENERAL: Negative for any nausea, vomiting, fevers, chills, or weight loss, fatigue NEUROLOGIC: Negative for any facial asymmetry, dysphagia, dysarthria, hemiparesis, hemisensory deficits, tingling, numbness, unilateral weakness or numbness/tingling, + blurred vision, dizziness, falls, worse with change in position and looking down HEENT: Negative for any head trauma, neck trauma, tinnitus, CARDIAC: Negative for any chest pain, peripheral edema. GASTROINTESTINAL: Negative for any abdominal pain, nausea, vomiting GENITOURINARY: Negative for any dysuria, hematuria, urge, frequency or incontinence. ENDOCRINE: Negative Thyroid trouble MUSCULOSKELETAL: Negativee Joint pain, stiffness, loss of strength (bilateral/unilateral), arthritis (mono or poly) Joint swelling (mono or poly), muscle pain/swelling, + limitations to motor activity d/t dizziness with walking Physical Examination - Vital Signs Vital Signs: Initial Vital Signs Temp Pulse Resp BP Pulse Ox 97.5 F L 51 16 167/74 97 10/23/18 16:15 10/23/18 16:15 10/23/18 16:15 10/23/18 16:15 10/23/18 16:15 - Exam Exam: Examination: General Examination: *CONSTITUTIONAL: A&O x3, no distress *GENERAL APPEARANCE OF PATIENT obese, elderly female *EYES: pupils equal, round, reactive to light and accommodation, conjunctiva clear without masses or ulcerations Musculoskeletal: *GAIT AND STATION normal, with normal Romberg testing, no abnormalities such as broad base gait or spasticity *ASSESSMENT OF MUSCLE STRENGTH IN THE UPPER AND LOWER EXTREMITIES bilateral deltoid, bicep, tricep, fire protection fabricator strength, hip flexors ,anterior tibialis, dorsoflexion of the foot 5/5 *MUSCLE TONE IN THE UPPER AND LOWER EXTREMITIES normal. No abnormal movements, fasciculations or atrophy identified. Neurological: *ORIENTATION to time, person, situation and place *RECURRENT AND REMOTE MEMORY intact *ATTENTION AND CONCENTRATION are normal *LANGUAGE FUNCTION no significant aphasia or dysarthia was noted. *FUND OF KNOWLEDGE aware of current events, past history, vocabulary *MENTAL attention span and concentration normal. *CN II optic fundi were normal, no papilledema noted. *CN III,IV, PERRLA extraocular eye movements were full, no nystagmus and no ptosis noted. *CN V shows normal sensation and jaw opens symmetrically. *CN VII shows normal facial movement symmetrically, upper and lower bilaterally. *CN VIII shows no significant hearing loss on exam *CN IX,,X palate elevated symmetrically *CN XI normal strength in the sternocleidomastoid muscles, symmetrical shoulder shrugging. *CN XII tongue protruded in the midline, with normal strength and movement. *SENSORY EXAMINATION light touch intact *REFLEXES: deep tendon reflexes were normal and symmetrical , grade 2/4 diffusely, no pathological reflexes were noted. *CEREBELLAR TESTING normal finger to nose, heel/knee/varela, and tandem walk. Results - Laboratory Findings CBC and BMP: 10/27/18 05:18 10/27/18 05:18 Abnormal lab findings: Abnormal lab results BUN 33 mg/dL (8-23) H 10/27/18 05:18 Est GFR (Non-Af Amer) 50 (> 60) L 10/27/18 05:18 BUN/Creatinine Ratio 30 (6-26) H 10/27/18 05:18 Glucose 63 mg/dL (70-105) L 10/27/18 05:18 POC Glucose 218 mg/dL (70-99) H 10/26/18 16:20 Hemoglobin A1c 10.8 % (-5.6) H 10/24/18 01:21 Triglycerides 203 mg/dL (< 150) H 10/24/18 01:21 VLDL Cholesterol, Calc 41 mg/dL (< 31) H 10/24/18 01:21 HDL Cholesterol 37 mg/dL (40-59) L 10/24/18 01:21 Ur Specific [place] 1.008 (1.010-1.025) L 10/23/18 17:23 Ur Leukocyte Esterase Trace (Negative) H 10/23/18 17:23 Urine Microscopic WBC 5-15 per hpf (0-3) H 10/23/18 17:23 Ur Squamous Epith Cells Moderate per lpf (None-Few) H 10/23/18 17:23 Urine Bacteria Many per hpf (None-Few) H 10/23/18 17:23 Ur Culture Indicated? YES (NO) A 10/23/18 17:23 - Diagnostic Findings Additional findings: CT head no acute intracranial abnormality CT neck reveals proximally 7-75% focal stenosis of the proximal right ICA by NASCET criteria. No follow and a stenosis of the left ICA by NASCET criteria. Moderate stenosis at the origin of both vertebral arteries. Brain MRI no acute intracranial abnormality, no acute infarct. Minimal global parenchymal volume loss with minimal chronic microvascular ischemic changes. Echo-LVEF 60-65%. Mild left ventricular diastolic dysfunction. Definity echo contrast was used. RV not well visualized. Mild tricuspid regurgitation. No pulmonary hypertension. Consult Discharge Plan - Plan Referrals: Abdi Lemon DO [Primary Care Provider] -
[2018-10-27] MEDS: Insulin DETEMIR 100 UNIT/ML X5UNITS SQ SCH (21:48)
[2018-10-28] MEDS: *HR* Heparin 5,000 UNIT/ML VIAL SQ SCH (05:19)
[2018-10-28] MEDS: Insulin LISPRO 300 UNITS/3 ML VIAL SQ SCH (07:38)
[2018-10-28] MEDS: Nitrofurantoin (BID) 100 MG CAPSULE PO SCH (08:05)
[2018-10-28] MEDS: Aspirin Enteric Coated 81 MG Tablet PO SCH (08:06)
--- NOTE | 2018-10-28 08:32 | Discharge Summary ---
<Courtney Lugo - Last Filed: 10/28/18 09:31> Orders not resulted at time of discharge: Pending orders 10/23/18 01:30 MMA (VIT B12 STATUS) Routine Date of Encounter: 10/28/18 - Discharge Diagnosis (1) Elevated troponin Status: Resolved (2) Insulin dependent diabetes mellitus Status: Chronic (3) Hypertension Status: Chronic Qualifiers: Hypertension type: essential hypertension Qualified Code(s): I10 - Essential (primary) hypertension (4) Hyperlipidemia Status: Chronic Qualifiers: Hyperlipidemia type: mixed hyperlipidemia Qualified Code(s): E78.2 - Mixed hyperlipidemia (5) Carotid artery stenosis, symptomatic Status: Acute Qualifiers: Laterality: bilateral Qualified Code(s): I65.23 - Occlusion and stenosis of bilateral carotid arteries (6) UTI (urinary tract infection) Status: Acute Qualifiers: Urinary tract infection type: acute cystitis Hematuria presence: without hematuria Qualified Code(s): N30.00 - Acute cystitis without hematuria (7) Orthostasis Status: Resolved Hospital course: Ms. Story is a 68 year old female - Time Spent with Patient Total time spent providing and/or coordinating discharge services: - Discharge Medications Prescriptions: New Metoprolol [Lopressor] 12.5 mg PO BID 30 Days #60 tablet Nitrofurantoin (BID) [Macrobid] 100 mg PO BIDWM 5 Days #10 capsule Continue Alendronate Sodium [Fosamax] 70 mg PO MO Triamterene/Hydrochlorothiazid [Triamterene-Hctz 75-50 mg Tab] 1 each PO DAILY Insulin Glargine,Hum.rec.anlog [Basaglar Kwikpen U-100] 60 unit SQ HS Insulin ASPART [NovoLOG] 10 unit SQ DAILY@1700 Losartan [Cozaar] 50 mg PO BID Duloxetine HCl [Cymbalta] 60 mg PO DAILY Pioglitazone [Actos] 45 mg PO 0800 Aspirin [Lo-Dose Aspirin EC] 81 mg PO DAILY Discontinued Metoprolol [Lopressor] 25 mg PO BID Home Medications: Alendronate Sodium [Fosamax] 70 mg PO MO 10/23/18 [History] Aspirin [Lo-Dose Aspirin EC] 81 mg PO DAILY 10/23/18 [History] Duloxetine HCl [Cymbalta] 60 mg PO DAILY 10/23/18 [History] Insulin ASPART [NovoLOG] 10 unit SQ DAILY@1700 10/23/18 [History] Insulin Glargine,Hum.rec.anlog [Basaglar Kwikpen U-100] 60 unit SQ HS 10/23/18 [History] Losartan [Cozaar] 50 mg PO BID 10/23/18 [History] Pioglitazone [Actos] 45 mg PO 0800 10/23/18 [History] Triamterene/Hydrochlorothiazid [Triamterene-Hctz 75-50 mg Tab] 1 each PO DAILY 10/23/18 [History] Metoprolol [Lopressor] 12.5 mg PO BID 30 Days #60 tablet 10/28/18 [Rx] Nitrofurantoin (BID) [Macrobid] 100 mg PO BIDWM 5 Days #10 capsule 10/28/18 [Rx] Allergies/Adverse Reactions: Allergy/AdvReac Type Severity Reaction Status Date / Time iodine Allergy Rash Verified 06/06/18 10:22 Penicillins Allergy Rash Verified 06/06/18 10:22 Bpmavln-Flz-Jze Reductase Allergy Rash Verified 06/06/18 10:22 Inhibitor ivp dye Allergy Rash Uncoded 05/20/17 15:27 Date of admission: 10/23/18 19:56 Primary care physician: Abdi Lemon DO Consults: 10/23/18 21:17 Consult to Physical Therapy [CONS] Routine Comment: Evaluate, develop and implement POC Reason for Consult: dizziness with standing, concern for CVA Does patient have active BEDREST order?: No Is patient medically & hemodynamically stable?: Yes Patient assessed for mobility or mobilized this visit?: No 10/26/18 11:21 Consult to Vascular Surgery [CONS] Routine Consulting Provider: Vascular Surgery [facility] Reason for Consult: Symptomatic Carotid Artery stenosis Time Notified: 11:21 Call Completed: Yes 10/27/18 09:58 Consult to Neurology [CONS] Routine Consulting Provider: [facility] Reason for Consult: Dizziness. MRI head negative. Does have carotid artery stenosis and was evaluated by Dr. Hernández during this admission. Time Notified: 09:54 Call Completed: Yes - Constitutional Vitals: Temp Pulse Resp BP Pulse Ox 98.2 F 63 20 119/64 96 10/28/18 06:44 10/28/18 06:44 10/28/18 06:44 10/28/18 06:44 10/28/18 06:44 - Patient Status Disposition: Home, Self-Care Condition: Good Overall status at discharge: patient is back to baseline - Discharge Instructions Instructions: Metoprolol (By mouth), Nitrofurantoin Combination (By mouth) Follow Up With: Abdi Lemon DO [Primary Care Provider] - 11/09/18 9:30 am (Please follow up as schedule...) Michelet Hernández MD [Partnered Physician] - (would like to see pt in 6 months for follow up) Additional Instructions: PT/OT evaluations recommended outpatient PT/OT upon discharge. Your PCP can help to arrange or you may contact your insurance to obtain list of covered therapists. Follow up with Vascular Surgeon in six months for repeat carotid artery imaging. It is recommended you take a statin medication to reduce risk of heart attack or stroke. Please discuss this further with your PCP if you become agreeable to the medication - Diet and Activity Activity: increase activity as tolerated Diet: diabetic diet, low fat, low cholesterol, low salt diet - Attending Attestation I examined this patient and my medical decision-making was reviewed with the Resident Physician Dr Esquivel. I agree with the documented findings, disposition and treatment plan as described except to the extent set forth below. Ms Story is currently in observation for dizziness, evaluated by Neurology, which has improved, UTI which is being treated and incidentally found to have RY stenosis of 70-75% which was evaluated by Vasc surg. She has been evaluated by pt/ot whom recommend outpt pt/ot.She is discharging to home in stable condition. Awake, pleasant, dizziness improved overall and none currently. No mckay, chest pain, palpitations. No dysuria, bladder pain or fevers/chills. gen- alert, awake,appears stated age cv- reg rate and rhythm, normal s1,s2, no murmurs appreciated, no le edema lungs- ctabl, no wheezing, rhonchi or crackles, normal resp effort ra neuro- AAOx3, CN grossly intact, no focal deficits 1. Dizziness, 2/2 to suspected vestibular dysfunction as per neuro and guruley complicated by UTI and orthostatic hypotension (since resolved with ivfs)- -neuro rec for non specific treatment including staying hydrated and rest, she will fu with PCP and rec is for outpt pt/ot if she desires 2. RY stenosis 70-75% on CTA- vasc surg rec for fu with Dr Macdonald and repeat CUS in 6 (resident note inaccurately says 6 weeks) , risk reduction, pt refuses statin as causes rash/muscle cramps, she will d/w pcp further upon dc, cont asa 3. UTI Ecoli- macrobid to complete 7d course 4. HTN- stable and BPs and HR at goal- cont current regimen on dc, will require outpt fu,she denies need for BB rx as she will cut home 25mg tabs in half for recommended 12.5mg BID dosing Further diagnoses and plan as noted by resident time spent on dc 25 min <Jose Esquivel - Last Filed: 10/28/18 17:03> - NOTES TO OUTPATIENT PROVIDER Notes to Outpatient Provider: Ms. Story was admitted on 10/23/[address] and MRI head were negative for CVA. Echocardiogram showed LVEF 60-65% and mild LV diastolic dysfunction. Carotid dopplers revealed right ICA with severe stenosis of 60-79% and left ICA with moderate 40-59% stenosis. CTA neck confirmed right ICA stenosis of 70-75%. Vascular surgery recommended follow up in clinic with repeat carotid duplex in 6 months. Neurology also evaluated the patient and recommended adequate hydration and bed rest. Initially positive orthostatic vitals resolved after IV fluid hydration. Pt was also found to have a UTI with E coli resistant to Levaquin. At time of discharge pt was given prescription for remaining 5 days of Macrobid. Home Metoprolol was decreased to 12.5mg BID since pt was found to be bradycardic during admission and educated that this could be exacerbating the dizziness as well. Recommend follow up with vascular surgery as above, and PCP in 3-5 days after discharge. Orders not resulted at time of discharge: Pending orders 10/23/18 01:30 MMA (VIT B12 STATUS) Routine Date of Encounter: 10/28/18 Time of Encounter: 09:15 - Discharge Diagnosis (1) Elevated troponin Priority: Primary Status: Resolved Assessment and Plan: Continues to deny chest pain Mild elevation at 0.04 on admission EKG in ED showed bradycardia but no ST-T wave changes Repeat troponin this morning 0.03 Continue ASA 81mg daily Echo results as above No further treatment at this time. (2) Insulin dependent diabetes mellitus Priority: Secondary Status: Chronic Assessment and Plan: Hgb A1c elevated at 10.3 Continue home Insulin regimen and Actos Follow up with PCP (3) Hypertension Priority: Primary Status: Chronic Assessment and Plan: Elevated on admission with SBP in the 170s Home metoprolol was initially d/c'ed due to bradycardia - restarted at half home dose, 12.5mg BID Controlled with high of 151/67 and low of 119/64 this morning Continue home Cozaar and Triamterene/HCTZ Continue Metoprolol 12.5mg BID Qualifiers: Hypertension type: essential hypertension Qualified Code(s): I10 - Essential (primary) hypertension (4) Hyperlipidemia Priority: Secondary Status: Chronic Assessment and Plan: Pt is allergic to statins Lipid panel revealed total cholesterol controlled at 170 Triglycerides elevated at 203 Continues to refuse statin despite ASCVD risk recommending high intensity statin Qualifiers: Hyperlipidemia type: mixed hyperlipidemia Qualified Code(s): E78.2 - Mixed hyperlipidemia (5) Carotid artery stenosis, symptomatic Priority: Primary Status: Acute Assessment and Plan: Presented with 2 days duration of dizziness No history of prior CVA or TIA CT head was negative MRI head was negative for acute abnormality, did show chronic microvascular ischemic changes Echocardiogram - LVEF 60-65%. Mild left ventricular diastolic dysfunction. RV not well visualized. Mild tricuspid regurgitation. Carotid dopplers - Right proximal ICA has a severe, 60-79% stenosis. Left mid ICA has a moderate, 40-59% stenosis. A1c elevated at 10.8 - follow up with PCP on discharge TSH and B12 normal Orthostatic change seen in BP from sitting to standing CTA neck from this morning revealed the following findings - Approximately 70-75% focal stenosis of the proximal right ICA by NASCET criteria. - No flow limiting stenosis of the left ICA by NASCET criteria. - Moderate stenosis at the origin of both vertebral arteries. Vascular surgery consulted They recommended medical management of co-morbid conditions including HTN, HLD, and DM2. Follow up as outpatient 6 months after discharge with repeat carotid duplex. Qualifiers: Laterality: bilateral Qualified Code(s): I65.23 - Occlusion and stenosis of bilateral carotid arteries (6) UTI (urinary tract infection) Priority: Secondary Status: Acute Assessment and Plan: UA on admission showed trace leukocyte esterase and many bacteria Was receiving Levaquin, however culture grew E coli resistant to Levaquin Prescription given for remaining 5 days of Macrobid Qualifiers: Urinary tract infection type: acute cystitis Hematuria presence: without hematuria Qualified Code(s): N30.00 - Acute cystitis without hematuria (7) Orthostasis Priority: Secondary Status: Resolved Assessment and Plan: Noted on vital signs from 10/24/18 from sitting to standing positions Again noted on vital signs from 10/25/18 from lying to sitting positions Repeated again on 10/26/18 after IV fluids, no orthostatic change between position changes Orthostasis likely related to volume status Educated on the importance of taking time to move between positions such as from sitting to standing Encouraged pt to drink plenty of water and stay hydrated at home Encourage follow up with PCP at time of discharge Hospital course: Ms. Story is a 68 year old female with past medical history of HTN, DM2 on insulin, HLD, with family hx of CAD and strokes. She was admitted on 10/23/18 for dizziness. Reported exacerbation with positional changes. CT head was unremarkable. MRI head revealed chronic microvascular changes. Echocardiogram showed LVEF 60-65% and mild LV diastolic dysfunction. Carotid dopplers revealed right ICA with severe stenosis of 60-79% and left ICA with moderate 40-59% stenosis. CTA neck confirmed right ICA stenosis of 70-75%. Home dose Metoprolol of 25mg BID was held on admission due to bradycardia, however pt became hypertensive with SBP in the 180s. Later restarted Metoprolol at 12.5mg BID which pt tolerated prior to discharge. Initially positive orthostatic vitals resolved after IV fluid hydration. Vascular surgery recommended follow up in clinic with repeat carotid duplex in 6 months along with treatment of HTN and HLD. Of note pt recommended high intensity stating with ASCVD risk, but pt refused with her allergy of rash. Neurology also evaluated the patient and recommended adequate hydration and bed rest. Pt educated on importance of taking adequate amount of time between position changes such as from sitting to standing. Pt was also found to have a UTI with E coli resistant to Levaquin. At time of discharge pt was given prescription for remaining 5 days of Macrobid, along with a script for decreased dose of Metoprolol as above. Recommend follow up with vascular surgery as above, and PCP in 3-5 days after discharge. Discharge discussed with: patient, nurse, clinical services consultant - Time Spent with Patient Total time spent providing and/or coordinating discharge services: Date of admission: 10/23/18 19:56 Primary care physician: Abdi Lemon DO Consults: 10/23/18 21:17 Consult to Physical Therapy [CONS] Routine Comment: Evaluate, develop and implement POC Reason for Consult: dizziness with standing, concern for CVA Does patient have active BEDREST order?: No Is patient medically & hemodynamically stable?: Yes Patient assessed for mobility or mobilized this visit?: No 10/26/18 11:21 Consult to Vascular Surgery [CONS] Routine Consulting Provider: Vascular Surgery [facility] Reason for Consult: Symptomatic Carotid Artery stenosis Time Notified: 11:21 Call Completed: Yes 10/27/18 09:58 Consult to Neurology [CONS] Routine Consulting Provider: [facility] Reason for Consult: Dizziness. MRI head negative. Does have carotid artery stenosis and was evaluated by Dr. Hernández during this admission. Time Notified: 09:54 Call Completed: Yes Discharging clinician: Jose Esquivel - Constitutional Vitals: Temp Pulse Resp BP Pulse Ox 98.2 F 63 20 119/64 96 10/28/18 06:44 10/28/18 06:44 10/28/18 06:44 10/28/18 06:44 10/28/18 06:44 General appearance: Present: cooperative, A&O X 3, no acute distress, answers questions appropriately Exam: Constitutional: obese female in no acute distress Head: normocephalic and atraumatic Eyes: PERRL, EOMI, sclera anicteric, conjunctiva pink Neck: supple, trachea midline, no carotid bruits appreciated Lungs: CTA bilaterally. non-labored breathing. no wheezes, rales, or rhonchi Heart: RRR +S1 +s2 No murmurs, clicks, or rubs appreciated GI: abdomen soft, non-tender, non-distended. normoactive bowel sounds Extremities: warm, peripheral pulses palpable and symmetrical. no edema, cyanosis, or calf tenderness. Neuro: A&Ox3. no focal deficits. no speech difficulty or abnormality. Skin: warm, dry, intact. - Patient Status Functional capacity at discharge: independent ambulation Overall status at discharge: patient is back to baseline - Diet and Activity Activity: increase activity as tolerated Diet: diabetic diet, low fat, low cholesterol, low salt diet
--- NOTE | 2018-10-28 10:02 | Neurology Progress Note ---
Date of Encounter: 10/28/18 Time of Encounter: 09:59 Assessment and Plan (1) Dizziness Status: Acute A&P Pt presented to ED in a hypertensive state, BP of 167/74 Carotid US indicated 60-79% stenosis of the right internal carotid CT head was negative for any intracranial findings Brain MRI negative Echocardiogram WNL with EF of 60-65% CTA of neck indicated moderate stenosis of the vertebral region Continue to f/u with caroid us in 6 mo to monitor stenosis dizziness does not appear to be a central cause. Most likely peripheral cause of dizziness with vestibular dysfunction. per my assessment today she does not have any focal neurological deficits and is reporting that the dizziness is now resolved. Okay to discharge from a neurology standpoint. Again I discussed the need for follow-up carotid duplex scan in 6 months due to carotid stenosis. The patient verbalizes understanding and denies any further questions at this time. Furthermore I have recommended vestibular therapy and should this continue consider outpatient consultation with ENT Subjective Principal diagnosis: Dizziness Interval history: Neuro consulted to rule out central versus peripheral cause of dizziness. With the lack of neurological findings it appears dizziness is likely vestibular dysfunction. She has been seen and examined at bedside today reports that her dizziness has resolved. Again, her neuro exam is nonfocal. She was able to ambulate throughout the room with a smooth gait; no dizziness with ambulation. Objective - Constitutional Vitals: Temp Pulse Resp BP Pulse Ox 98.2 F 63 20 119/64 96 10/28/18 06:44 10/28/18 06:44 10/28/18 06:44 10/28/18 06:44 10/28/18 06:44 Exam: Examination: General Examination: *CONSTITUTIONAL: Calm, cooperative and in no distress *GENERAL APPEARANCE OF PATIENT currently female who overall appears healthy and well groomed *EYES: pupils equal, round, reactive to light and accommodation, conjunctiva clear *GAIT AND STATION normal, with normal Romberg testing, no abnormalities such as broad base gait or spasticity *ASSESSMENT OF MUSCLE STRENGTH IN THE UPPER AND LOWER EXTREMITIES bilateral deltoid, bicep, tricep, poultry vaccinator strength, hip flexors ,anterior tibialis, dorsoflexion of the foot 5/5 *MUSCLE TONE IN THE UPPER AND LOWER EXTREMITIES normal. No abnormal movements, fasciculations or atrophy identified. Neurological: *ORIENTATION to time, situation, person and place *RECURRENT AND REMOTE MEMORY intact *ATTENTION AND CONCENTRATION are normal *LANGUAGE FUNCTION no significant aphasia or dysarthia was noted. *FUND OF KNOWLEDGE aware of current events, past history, vocabulary *MENTAL attention span and concentration normal. *CN II optic fundi were normal *CN III,IV, PERRLA extraocular eye movements were full, no nystagmus and no ptosis noted. *CN V shows normal sensation and jaw opens symmetrically. *CN VII shows normal facial movement symmetrically, upper and lower bilaterally. *CN VIII shows no significant hearing loss on exam *CN IX,,X palate elevated symmetrically *CN XI normal strength in the sternocleidomastoid muscles, symmetrical shoulder shrugging. *CN XII tongue protruded in the midline, with normal strength and movement. *SENSORY EXAMINATION light touch intact *REFLEXES: deep tendon reflexes were diminished diffusely, no pathological reflexes were noted. *CEREBELLAR TESTING normal finger to nose *PAIN LEVEL 0 Results - Laboratory Findings CBC and BMP: 10/27/18 05:18 10/27/18 05:18 Abnormal lab findings: Abnormal lab results BUN 33 mg/dL (8-23) H 10/27/18 05:18 Est GFR (Non-Af Amer) 50 (> 60) L 10/27/18 05:18 BUN/Creatinine Ratio 30 (6-26) H 10/27/18 05:18 Glucose 63 mg/dL (70-105) L 10/27/18 05:18 POC Glucose 268 mg/dL (70-99) H 10/27/18 15:47 Hemoglobin A1c 10.8 % (-5.6) H 10/24/18 01:21 Triglycerides 203 mg/dL (< 150) H 10/24/18 01:21 VLDL Cholesterol, Calc 41 mg/dL (< 31) H 10/24/18 01:21 HDL Cholesterol 37 mg/dL (40-59) L 10/24/18 01:21 Ur Specific [place] 1.008 (1.010-1.025) L 10/23/18 17:23 Ur Leukocyte Esterase Trace (Negative) H 10/23/18 17:23 Urine Microscopic WBC 5-15 per hpf (0-3) H 10/23/18 17:23 Ur Squamous Epith Cells Moderate per lpf (None-Few) H 10/23/18 17:23 Urine Bacteria Many per hpf (None-Few) H 10/23/18 17:23 Ur Culture Indicated? YES (NO) A 10/23/18 17:23 Consult Discharge Plan - Plan Instructions: Metoprolol (By mouth), Nitrofurantoin Combination (By mouth) Additional Instructions: PT/OT evaluations recommended outpatient PT/OT upon discharge. Your PCP can help to arrange or you may contact your insurance to obtain list of covered therapists. Follow up with Vascular Surgeon in six months for repeat carotid artery imaging. It is recommended you take a statin medication to reduce risk of heart attack or stroke. Please discuss this further with your PCP if you become agreeable to the medication Referrals: Michelet Hernández MD [Partnered Physician] - (would like to see pt in 6 months for follow up) Abdi Lemon DO [Primary Care Provider] - 11/09/18 9:30 am (Please follow up as schedule...) Prescriptions: Metoprolol [Lopressor] 12.5 mg PO BID 30 Days #60 tablet Nitrofurantoin (BID) [Macrobid] 100 mg PO BIDWM 5 Days #10 capsule
[2018-10-28 11:03] VITALS: BP 137/54
== END 2018-10-28 12:04 | disposition home or self-care (01) ==
LOC: 2ANU 16:14 → EMEROOARM 16:14 → SUATTDRO 19:56 → 2ANU 20:10
PROVIDERS: ADMIT Hospitalist; ATTEND Internal Medicine